=== PATIENT | male | born 1935 | race Caucasian/White ===

== ENCOUNTER → 2017-04-29 08:55 | Outpatient (CLI) | payer MEDICARE, BC | END | disposition home or self-care (01) | LOC: D.US 08:55 | DX: I71.4 Abdominal aortic aneurysm, without rupture (principal); I65.23 Occlusion and stenosis of bilateral carotid arteries ==

== ENCOUNTER → 2018-01-07 13:32 | Outpatient (CLI) | payer MEDICARE, BC | END | disposition home or self-care (01) | LOC: D.CT 13:32 | DX: I65.23 Occlusion and stenosis of bilateral carotid arteries (principal) ==

== ENCOUNTER → 2018-01-23 07:11 | Outpatient (CLI) | payer MEDICARE, BC | END | disposition home or self-care (01) | LOC: D.RT 07:11 | DX: R06.02 Shortness of breath (principal) ==

== ENCOUNTER 2018-03-04 11:37 | Inpatient (IN) | payer MEDICARE, BC ==
[~2018-03-04] VITALS: Ht 179.1 cm; Wt 102.3 kg
[2018-03-04] VITALS (7 sets, daily range): BP systolic 91–150; BP diastolic 66–93; Ht 179.1 cm; Wt 102.3 kg
--- NOTE | ~2018-03-04 | MORECARE ---
CASE MANAGEMENT DISCHARGE SUMMARY PATIENT: SHEILA GROSSMAN UNIT: [id number] ADM DATE: 03/04/18 AGE: 83 : 35 SEX: M ROOM/BED: D.3121 AUTHOR: JILL,DOC PHYSICIAN: REFERRING PHYSICIAN: ELYSSA BROOKS MD DATE OF SERVICE: 03/06/18 Discharge Plan Patient Name: SHEILA GROSSMAN Facility: [facility]:[place] : 1935 Planned Disposition: Home Anticipated Discharge Date: 03/05/18 Discharge Date: 03/05/2018 Expected LOS: 1 Initial Reviewer: [email or web address] Initial Review Date: 03/04/2018 Generated: 03/06/18 10:45 am DCP- Discharge Planning Updated by [email or web address]: Lakshmi Lange on 03/04/18 11:[address] Patient Name: SHEILA GROSSMAN Admission Status: ER Accout number: [id number] Admission Date: 03-04-2018 : 1935 Admission Diagnosis: Attending: ELYSSA BROOKS Current LOS: 1 Anticipated DC Date: 03-06-2018 Planned Disposition: Home Primary Insurance: MEDICARE A & B Discharge Planning Comments: CM met with patient and his daughter to complete initial dc planning assessment. CM educated patient on the CM role and verbal consent given by patient to complete assessment. Patient lives at home alone and reports he is independent in his care and denied use of community resources. His daughter has been staying with him the past few days due to having eye surgery. At discharge patient plans to return home alone and feels this is a safe discharge. Patient denied known discharge needs at this time. CM will continue to follow and will assist as needed with dc plans/needs. See below for more assessment information. City Letter Carrier: Lakshmi Lange RN, [facility] DCPIA - Discharge Planning Initial Assessment Updated by [id number]: Lakshmi Lange on 03/04/18 12:55 pm * Is the patient Alert and Oriented? Yes * How many steps to enter\exit or inside your home? None * PCP Dr. Andrea * Pharmacy [facility] [address] * Preadmission Environment Home Alone * ADLs Independent * Equipment CPAP Glucometer * Other Equipment Checks his sugar every morning. Last A1C was 5.3 * List name and contact numbers for known caregivers / representatives who currently or will assist patient after discharge: Darlene Wan - daughter - [phone] * Verbal permission to speak to the caregivers and representatives has been obtained from the patient. Yes * Community resources currently utilized None * Additional services required to return to the preadmission environment? No * Can the patient safely return to the preadmission environment? Yes * Has this patient been hospitalized within the prior 30 days at any hospital? No Last DP export: 03/04/18 12:01 Patient Name: SHEILA GROSSMAN Page 36741 at 0945 All edits/amendments must be made on the electronic document DICTATION DATE: 03/06/18944 TAP AND DIE MAKER TECHNICIAN: NUNU 03/06/18944 RPT#: [id number] DC DATE:03/05/18 STATUS: DIS IN [facility] [address] [place] [address] END OF REPORT
--- NOTE | ~2018-03-04 | HEMODYNAMI ---
PATIENT:SHEILA GROSSMAN MEDICAL RECORD: [id number] : [birth year] LOCATION:[address] ADMISSION DATE: 03/04/18 Generatedon:03/05/20189:06 Patient name: SHEILA GROSSMAN Patient #: [id number] SSN: : Date of study: 03/05/2018 Page: Of Hemodynamic Procedure Report Patient Data Patient Demographics Procedure consent was obtained First Name: SHEILA Gender: Male Last Name: CHAUNCEY : 1935 [facility] Initial: HIPOLITO Age: 83 year(s) Patient #: [id number] Race: Unknown Additional ID: [id number] Contact details Address: [address] [place] [address] State: [place] City: [place] Zip code: [address] Past Medical History Allergies: No known allergies Admission Admission Data Admission Date: 03/04/2018 Admission Time: 12:34 Room #: D.2115 Lab Results Lab Result Date: 03/05/2018 Lab Result Time: 0:00 Biochemistry Name Units Result Min Max BUN mg/dl 37 --(----)-* 7 18 Creatinine mg/dl 1.4 --(----)*- 0.6 1.3 CBC Name Units Result Min Max Hemoglobin g/dl 13.9 --(*---)-- 13.5 17.5 Procedure Procedure Types Cath Procedure Diagnostic Procedure LHC LH w/Coronaries FFR/IVUS Intra-Coronary IVUS Initial Sedation Charges Moderate Sedation up to 15 minutes PCI Procedure Coronary Stent Coronary Stent Initial x2 Procedure Description Procedure Date Procedure Date: 03/05/2018 Procedure Start Time: 8:39 Procedure End Time: 9:05 Procedure Staff Name Function Karthik Young MD Performing Physician Viki Naidu RT Scrub Digna Conner RN Nurse Evert Mckay RT Monitor Preston Arnett RN Supervisor Graphite Procedure Data Cath Procedure Fluoroscopy Diagnostic fluoroscopy Total fluoroscopy Time: 7.3 time: 7.3 min min Diagnostic fluoroscopy Total fluoroscopy dose: dose: 1217 mGy 1217 mGy Contrast Material Contrast Material Type Amount (ml) Isovue 300 138 Entry Location Entry Primary Successful Side Size Upsize Upsize Entry Closure Craig ccessful Closure Location (Fr) 1 (Fr) 2 (Fr) Remarks Device Remarks Radial Right 6 Fr Mechanical artery Short Compression Estimated blood loss: 10 ml Diagnostic catheters Device Type Used For End Catheter Placement DIAGNOSTIC [place]ff 110cm 5 Procedure Fr catheter ([id number]) Procedure Complications No complications Procedure Medications Medication Administration Route Dosage 0.9% NaCl I.V. 100 ml/hr Oxygen etCO2 Nasal cannula 2 l/min Lidocaine 2% added to field 20 Heparin Flush Bag added to field 2 bags (1000units/500ml NS) Radial Cocktail added to field 1 syringe (Verapomil 2mg/Nitro 400mcg/Heparin 1500units) Versed I.V. 2 mg Fentanyl I.V. 50 mcg Heparin Bolus I.V. 4000 units Versed I.V. 1 mg Fentanyl I.V. 25 mcg Hemodynamics Rest Heart Rate: 79 (bpm) Snapshots Pre Cath Intra NCS Post Cath Vital Signs Time Heart Resp SPO2 etCO2 NIBP (mmHg) Rhythm Pain Sedation Rate (ipm) (%) (mmHg) Status Level (bpm) 8:29:00 93 16 97 34 129/91(107) A-Fib 0 (11) 10(A) , No pain 8:33:00 78 17 98 33.6 129/94(111) A-Fib 0 (11) 10(A) , No pain 8:37:06 79 18 97 27.6 109/82(102) A-Fib 0 (11) 9(A) , No pain 8:41:14 95 18 96 22.4 116/74(92) A-Fib 0 (11) 9(A) , No pain 8:45:21 88 18 97 20 82/58(69) A-Fib 0 (11) 10(A) , No pain 8:49:21 84 16 98 20 92/70(75) A-Fib 0 (11) 9(A) , No pain 8:53:23 93 18 97 25 100/69(85) A-Fib 0 (11) 9(A) , No pain 8:57:27 98 16 98 26 100/75(88) A-Fib 0 (11) 10(A) , No pain 9:01:36 63 9 92 0 100/61(82) A-Fib 0 (11) 10(A) , No pain 9:05:36 0 No Cuff A-Fib 0 (11) 10(A) , No pain Medications Time Medication Route Dose Verified Delivered Reason Note s Effectiveness by by 8:27:21 0.9% NaCl I.V. 100 Karthik Digna used for ml/hr Hector Conner 21 dealer 8:27:27 Oxygen etCO2 2 l/min Karthik Digna used for Nasal Hector Conner procedure cannula RN 8:27:32 Lidocaine 2% added 20ml Karthik Karthik for local to vial Hector Young MD anesthetic field 8:27:37 Heparin Flush added 2 bags Karthik Karthik used for Bag to Hector Young MD procedure (1000units/500ml field NS) 8:27:42 Radial Cocktail added 1 Karthik Karthik used for (Verapomil to syringe Hector Young MD procedure 2mg/Nitro field 400mcg/Heparin 1500units) 8:36:44 Versed I.V. 2 mg Karthik Digna for sedation Hector Conner RN 8:36:55 Fentanyl I.V. 50 mcg Karthik Digna for sedation Hector Conner RN 8:44:59 Heparin Bolus I.V. 4000 Karthik Digna for veri fied units Hector Conner anticoagulation with Dr. ANTHONY Young 8:45:13 Versed I.V. 1 mg Karthik Digna for sedation Hector Conner RN 8:45:17 Fentanyl I.V. 25 mcg Karthik Digna for sedation Hector Conner RN Procedure Log Time Note 8:06:25 Signed procedure consent form obtained from patient. 8:06:28 Preston Arnett RN sent for patient. Start room use. 8:06:28 Time tracking: Regular hours (M-F 7:00 - 5:00) 8:06:31 Plan of Care:Hemodynamics will remain stable., Cardiac rhythm will remain stable., Comfort level will be maintained., Respiratory function will remain adequate., Patient/ family verbilizes understanding of procedure., Procedure tolerated without complication., Recovers from procedure without complications.. 8:06:35 Diagnostic Cath status Elective 8:17:15 H&P Date Dictated: 03/04/2018 Within 30 days and on chart., H&P Addendum completed by physician on day of procedure. (MUST COMPLETE FOR ALL OUTPATIENTS). 8::59 Lab Result : Creatinine 1.4 mg/dl 8::59 Lab Result : BUN 37 mg/dl 8::59 Lab Result : Hemoglobin 13.9 g/dl 8:21:34 Patient received from Med II to CCL 1 Alert and oriented. Tansferred to table in Supine position. 8:21:35 Warm blankets applied, and caro hugger turned on for patient comfort. 8:21:35 Correct patient and procedure confirmed by team. 8:21:36 ECG and BP/O2 sat monitors applied to patient. 8:27:21 0.9% NaCl 100 ml/hr I.V. was administered by Digna Conner RN; used for procedure; 8:27:27 Oxygen 2 l/min etCO2 Nasal cannula was administered by Digna Conner RN; used for procedure; 8:27:32 Lidocaine 2% 20ml vial added to field was administered by Karthik Young MD; for local anesthetic; 8:27:37 Heparin Flush Bag (1000units/500ml NS) 2 bags added to field was administered by Karthik Young MD; used for procedure; 8:27:42 Radial Cocktail (Verapomil 2mg/Nitro 400mcg/Heparin 1500units) 1 syringe added to field was administered by Krathik Young MD; used for procedure; 8:28:08 Vital chart was started 8:34:09 Baseline sample Acquired. 8:34:13 Rhythm: atrial fibrillation 8:34:15 Pre-procedure instructions explained to patient. 8:34:16 Pre-op teaching completed and patient verbalized understanding. 8:34:18 Family unavailable. 8:34:20 Patient NPO since Midnight. 8:34:24 Patient allergic to No known allergies 8:34:26 Is patient on blood thinner?Yes 8:34:28 ACC The patient was administered the following blood thiners within the last 24 hours: ACCPlavix 8:34:30 Patient diabetic? Yes. 8:34:30 If diabetic: On Metformin? Yes 8:34:36 If on Metformin: Last Dose? 03/04/2018 8:34:41 Previous problem with sedation/anesthesia? No ? 8:34:41 Snore? Yes 8:34:42 Sleep apnea? Yes 8:34:43 Deviated septum? No 8:34:43 Opens mouth fully? Yes 8:34:44 Sticks out tongue? Yes 8:34:47 Airway obstruction? Yes COPD 8:34:53 Dentures? Yes TOP IN TIGHT 8:34:56 Modified Chas's test Ulnar < 7 seconds 8:34:57 Patient pain scale 0/10 ?. 8:35:03 IV patent on arrival in left forearm with 0.9% NaCl at [facility]. 8:35:05 Lab results completed and on chart. 8:35:08 Right Radial & Right Groin area was prepped with chlora-prep and draped in sterile fashion 8:35:09 Alarms reviewed by R. N. 8:35:09 Sharps counted by scrub and verified by R.N. 8:35:11 Use device set Radial Dx or PCI 8:35:12 ACIST Syringe (88285) opened to sterile field. 8:35:12 Medline Cath Pack ([id number]) opened to sterile field. 8:35:13 Bag Decanter (2002S) opened to sterile field. 8:35:16 ACIST Hand Control (75715) opened to sterile field. 8:35:16 ACIST Manifold (74329) opened to sterile field. 8:35:16 Tegaderm 4 x 4 (1626W) opened to sterile field. 8:35:17 MBrace Wrist Support ([id number]) opened to sterile field. 8:35:18 SHEATH 6FR Slender (02-1060) opened to sterile field. 8:35:19 DIAGNOSTIC WIRE .035 260cm J wire (911362) opened to sterile field. 8:35:24 Physician arrived 8:35:25 --------ALL STOP TIME OUT------ 8:35:28 Final Timeout: patient, procedure, and site verified with staff and physician. All members of the team are in agreement. 8:35:31 Right Radial & Right Groin site verified by team. 8:35:33 Physical assessment completed. ASA score P 2 - A patient with mild systemic disease as per Karthik Young MD. 8:35:35 Sedation plan: IV Moderate Sedation Medication:Versed, Fentanyl 8:36:44 Versed 2 mg I.V. was administered by Digna Conner RN; for sedation; 8:36:51 Zero performed for pressure channel P1 8:36:55 Fentanyl 50 mcg I.V. was administered by Digna Conner RN; for sedation; 8:39:08 Procedure started. 8:39:09 Full Disclosure recording started 8:39:12 Local anesthetic to right radial artery with Lidocaine 2% by Karthik Yonug MD.INITIAL ACCESS ONLY 8:39:18 A 6 Fr Short sheath was inserted into the Right Radial artery 8:40:18 A DIAGNOSTIC [place] 110cm 5 Fr catheter (594233) was advanced over the wire and used for Procedure. 8:41:36 LV gram done using BRAXTON 8:41:38 Injector settings: Ml/sec: 5, Volume: 15, 8:41:55 EF : 40 % 8:42:00 LCA angiography performed. 8:43:27 RCA angiography performed. 8:43:45 CHOICE PT Extra Support 182cm wire ([id number]) opened to sterile field. 8:43:46 INFLATOR Merit BasixCompak (DI2601) opened to sterile field. 8:43:50 [place] IVUS Catheter (37503Z) opened to sterile field. 8:44:59 Heparin Bolus 4000 units I.V. was administered by Digna Conner RN; for anticoagulation; verified with Dr. Young 8:45:13 Versed 1 mg I.V. was administered by Digna Conner RN; for sedation; 8:45:17 Fentanyl 25 mcg I.V. was administered by Digna Conner RN; for sedation; 8:45:31 GUIDE 6FR XBLAD 3.5 catheter ([id number]) opened to sterile field. 8:45:40 6 Fr XBLAD 3.5 guide catheter was inserted over the wire 8:46:03 CHOICE PT ES wire advanced. 8:46:09 Wire advanced across lesion. 8:47:00 CHOICE PT Extra Support 182cm wire ([id number]) opened to sterile field. 8:47:10 Wire removed. damaged. 8:47:26 CHOICE PT ES wire advanced. 8:48:37 IVUS catheter advanced over wire. 8:48:39 IVUS pass to Circ lesion performed. 8:48:40 IVUS catheter removed over wire. 8:52:02 Place stent Inflation Number: 1 A INTEGRITY RX 2.5 x 14 stent ([id number]) was prepped and advanced across the 1st Ob Rosa. The stent was deployed at 11 SUSANNAH for 0:10 (min:sec). 8:52:05 Stent catheter was removed intact over wire. 8:52:06 Wire removed. 8:52:07 Guide catheter removed. 8:52:12 GUIDE 6FR AR 2.0 SH catheter ([id number]) opened to sterile field. 8:52:20 6 Fr AR 2 SH guide catheter was inserted over the wire 8:53:38 CHOICE PT ES wire advanced. 8:53:41 Wire advanced across lesion. 8:55:11 Inflate balloon Inflation number: 1 A INTEGRITY RX 3.5 x 15 stent ([id number]) was prepped and advanced across the Prox RCA, then inflated to 13 SUSANNAH for 0:10 (min:sec). 8:55:22 Stent catheter was removed intact over wire. 8:55:23 Wire removed. 8:55:23 Guide catheter removed. 8:55:29 TR BAND Standard ([id number]) opened to sterile field. 8:56:04 Sheath removed intact; hemostasis achieved with Mechanical Compression to the Right Radial artery. 8:56:05 Procedure ended.(Physican Out) 8:59:30 Fluoroscopy time 07.30 minutes. 8:59:34 Flurop Dose total: 1217 8:59:34 Fluoroscopy dose: 1217 mGy 8:59:38 Contrast amount:Isovue 300 138ml. 8:59:39 Sharps counted by scrub and verified by R.N. 8:59:41 TR band inflated with 10cc of air. 8:59:42 Insertion/operative site no bleeding no hematoma. 8:59:52 Post right radial artery:stable, soft, clean and dry 8:59:56 Post-procedure physical assessment completed. ASA score P 2 - A patient with mild systemic disease as per Karthik Young MD. 9:01:15 Post procedure rhythm: sinus rhythm 9:01:18 Estimated blood loss: 10 ml 9:01:24 Post procedure instruction explained to patient.Patient verbalizes understanding. 9:01:25 Patient needs reinforcement of post procedure teaching. 9:02:16 Procedure type changed to Cath procedure, Diagnostic procedure, LHC, LHC w/Coronaries, FFR/IVUS, Intra-Coronary IVUS Initial, Sedation Charges, Moderate Sedation up to 15 minutes, PCI procedure, Coronary Stent, Coronary Stent Initial x2 9:05:17 Procedure and supply charges have been captured, reviewed, submitted and are correct. 9:05:19 Procedure Complication : No complications 9:05:21 Vital chart was stopped 9:05:21 See physician's report for complete and final results. 9:05:22 Report given to PCU. 9:05:24 Patient transfered to PCU with Stretcher. 9:05:26 Procedure ended. 9:05:26 Full Disclosure recording stopped 9:05:30 End room use (Document Last) Intervention Summary Intervention Notes Time ActionType Lesion and Equipment Action# Pressure Duration Attributes Used 8:52:02 Place stent 1st Ob Rosa INTEGRITY RX 1 11 00:10 2.5 x 14 stent ([id number]) 8:55:11 Inflate Prox RCA INTEGRITY RX 1 13 00:10 balloon 3.5 x 15 stent ([id number]) Device Usage Item Name Manufacture Quantity Catalog Number Hospital Part Current Mini mal Lot# / Charge Number Stock Stock Serial# Code ACIST Acist 1 12769 976975 727247 755284 20 Syringe Medical (08454) Systems Inc Medline Cath Medline 1 [id number] 490798 42780 398105 5 Pack ([id number]) Bag Decanter Microtek 1 2001S 244533 03734 927382 5 (2001S) Medical Inc. ACIST Hand Acist 1 83714 263373 549804 475910 5 Control Medical (41165) Systems Inc ACIST Acist 1 71866 230169 682607 430845 5 Manifold Medical (03687) Systems Inc Tegaderm 4 x 3M 1 1626W 619255 374694 056001 5 4 (1626W) MBrace Wrist Advanced 1 140-0250-00 838109 24416 139775 5 Support Vascular (155961602) Dynamics SHEATH 6FR Terumo 1 [id number] 557559 117955 510309 5 Slender (80-1060) DIAGNOSTIC St Piotr 1 790108 826731 021656 192648 30 WIRE .035 260cm J wire (410797) DIAGNOSTIC Terumo 1 40-5070 769724 327216 843905 5 De Graff 110cm 5 Fr catheter (833416) CHOICE PT [place] 2 [id number] 396754 183673 787934 5 Extra Scientific Support 182cm wire (5220801T2) INFLATOR Merit 1 SH9923 544212 452208 913838 15 Merit Medical BasixCompak (DM0789) [place] 1 80785W 398592 112833 397132 8 [place] IVUS Catheter (73093L) GUIDE 6FR Cardinal 1 04593333 937639 481105 956092 10 XBLAD 3.5 Health catheter (69796512) INTEGRITY RX Medtronic 1 [id number] 267917 581937 191250 5 [id number] 2.5 x 14 stent ([id number]) GUIDE 6FR AR Medtronic 1 [id number] 806671 94481 500342 1 2.0 SH catheter ([id number]) INTEGRITY RX Medtronic 1 [id number] 793525 770451 321227 5 [id number] 3.5 x 15 stent ([id number]) TR BAND Terumo 1 [id number] 432780 774281 298041 40 Standard ([id number]) Signature Audit [place] Stage Time Signature Unsigned Intra-Procedure 03/05/2018 Evert Mckay 9:06:05 AM RT(R) Signatures Monitor : Evert Mckay RT Signature : Date : Time : [id number] [place] [address]
--- NOTE | ~2018-03-04 | EC ---
PATIENT:SHEILA GROSSMAN DATE OF SERVICE: 03/04/18 SEX: M MEDICAL RECORD: [id number] DATE OF : [birth year] LOCATION:D.M2 D.211 AGE OF PATIENT: 83 ADMISSION DATE: 03/04/18 REFERRING PHYSICIAN: INTERPRETING PHYSICIAN: JE YOUNG MD ECHOCARDIOGRAM REPORT ECHO CHARGES 4 ECHO COMPLETE Date: 03/04/18 CLINICAL DIAGNOSIS: CHEST PAIN, ATRIAL FIB ECHOCARDIOGRAPHIC MEASUREMENTS (adult normal given) AC root (d.<3.7cm) 2.5 cm LV Septum d (<1.2 cm> 1.3 cm Valve Excursion 1.3 cm LV Septum (systole) 1.5 cm Left Atria (s.<4.0cm> 3.7 cm LVPW d(<1.2cm) 1.5 cm RV (d.<2.3cm) 3.7 cm LVPW (sytole) 1.8 cm LV diastole(<5.6CM) 5.2 cm MV E-F(>70mm/sec) cm LV systole 3.9 cm LVOT Diameter 1.6 cm MV exc.(>10mm) 0.9 cm Est.ejection fraction (50-75%) % DOPPLER: LVIT cm/sec A 34.0 cm/sec E 101 cm/sec LA cm/sec RVSP 27 mmHg LVOT 71 cm/sec AOP1/2T m/s Asc. Ao 122 cm/sec RVOT 72 cm/sec RA cm/sec PA 87 cm/sec AV Gradient Peak 5.95 mmHg AV Mean 3.18 mmHg AV Area 1.7 cm MV Gradient Peak 4.36 mmHg MV Mean 1.57 mmHg MV Area cm COMMENTS: Reading Aide: Rosa MCDONNELL Aircraft Powertrain Repairer: 1 Dr. Young TAPE# PACS Pericardial Effusion N DATE OF SERVICE: 03/04/2018 PROCEDURE: Echocardiogram. FINDINGS: 1. Left ventricular chamber size is within normal limits. Left ventricular systolic function is normal. Overall ejection fraction estimated at 55%. 2. Left atrium is within normal limits at 3.7 cm. Right atrium and right ventricle chamber sizes are mildly dilated. 3. Valvular structures have normal structure and motion. ECHOCARDIOGRAM REPORT [id number] SHEILA GROSSMAN 4. Doppler interrogation reveals mild mitral regurgitation, no other valvular insufficiency or stenosis. Pulmonary systolic pressure is estimated at 27 mmHg. 5. No evidence of pericardial effusion or left ventricular thrombus. TRANSINT:[id number] Voice Confirmation ID: [id number] DOCUMENT ID: [id number] JE YOUNG MD CC: [id number] DICTATION DATE: 03/05/18831 CENTER MEDICAL DIRECTOR: 03/05/18 1131 ADM IN [facility] [address] [id number]
--- NOTE | ~2018-03-04 | OP ---
PATIENT NAME: SHEILA GROSSMAN MEDICAL RECORD: [id number] :35 LOCATION:D.M2 D.2115 ADMISSION DATE:03/04/18 SURGEON: JE DIAZ MD DATE OF OPERATION: 03/05/2018 PROCEDURES: 1. PTCA stent RCA. 2. PTCA stent left circumflex. 3. Intravascular ultrasound. 4. Left heart catheterization. 5. Selective coronary angiography. 6. Left ventriculogram. INDICATION: Chest pain compatible with angina and coronary artery disease. PROCEDURE IN DETAIL: After informed consent was obtained and after a detailed description of risks, benefits, as well as alternative therapies, the patient elected to proceed with angiogram and angioplasty. The right radial area was prepped and draped in normal sterile fashion. Right radial artery was cannulated via modified Seldinger technique with placement of 6-[place]izen [place] sheath. All catheters exchanged through this sheath. FINDINGS: Left ventriculogram was performed in standard 30-degree BRAXTON view, reveals mild global hypokinesis, ejection fraction estimated at 40%. SELECTIVE CORONARY ANGIOGRAPHY: 1. Left main is with no significant angiographic disease. 2. Left anterior descending has moderate irregularities, but no flow-limiting stenosis. 3. The left circumflex has greater than 90% stenosis confirmed by intravascular ultrasound in the mid vessel. 4. Right coronary artery has 90% stenosis proximally. PTCA STENT OF THE LEFT CIRCUMFLEX: The stent used was a 2.5 x 14 mm Integrity. Result was 0% residual stenosis. PTCA STENT OF THE RCA: The stent used was a 3.5 x 15 mm Integrity. Result was 0% residual stenosis and the patient spontaneously converted from atrial fibrillation to sinus rhythm after PTCA stent of the RCA. OVERALL IMPRESSION: Successful PTCA stent of the RCA and circumflex, both going from 90% initial stenosis to 0% residual. TRANSINT:[id number] Voice Confirmation ID: [id number] DOCUMENT ID: [id number] JE DIAZ MD CC: [id number] DICTATION DATE: 03/05/18901 BUILDING MAINTENANCE TECHNICIAN: 03/05/18 1136 [place] [address]
--- NOTE | ~2018-03-04 | CN ---
PATIENT NAME:SHEILA GROSSMAN MEDICAL RECORD: [id number] : 35 LOCATION:[facility].E16- ADMIT DATE: 03/04/18 ACCOUNT: [id number] CONSULTING PHYSICIAN: JE DIAZ MD REFERRING PHYSICIAN: ELYSSA BROOKS MD DATE OF CONSULTATION: 03/04/2018 CARDIOLOGY CONSULT DIAGNOSES: 1. Atrial fibrillation, new onset, unknown duration. 2. Shortness of breath. 3. Chest pain, compatible with angina. 4. Abnormal ECG. 5. Smoking history. 6. COPD. 7. Carotid vascular disease. HISTORY: This is a gentleman who went for a wellness check at his physician's office, was found to be in atrial fibrillation. He has felt short of breath and some intermittent chest pressure for the past 2 months. He did not know that he is in atrial fibrillation. He has not felt any palpitations. He is currently in atrial fibrillation with heart rate in the 130s. His EKG shows ST depression and T wave inversion in the lateral leads. His has an EKG from [facility] where he underwent a retinal surgery approximately 2 weeks ago and the EKG then was atrial fibrillation but did not have the ST-T changes. PHYSICAL EXAMINATION: GENERAL APPEARANCE: Well-nourished, well-developed, appears stated age. Level of distress, comfortable. PSYCHIATRIC: Mental status, alert, normal affect. Orientation, oriented to time, place and person. EYES: Lids and conjunctiva, noninjected. No discharge, no pallor. ENT: Lips, teeth, gums, normal dentition. Oropharynx, no cyanosis, no pallor. NECK: Carotid arteries, bilateral normal upstroke, no bruits, no thrills. JUGULAR VEINS: No jugular venous pressure or distention. CERVICAL LYMPH NODES: Nontender, nonenlarged. THYROID: Not enlarged. Nontender. No nodules. LUNGS: Respiratory effort, unlabored. CHEST: Normal curvature. No thoracic deformity. No chest wall tenderness. Percussion, resonant. Auscultation, clear. No wheezes, no rales, no rhonchi. CARDIOVASCULAR: Irregularly irregular with atrial fibrillation. EXTREMITIES: No cyanosis, no edema. Peripheral pulses, full and equal in all extremities, except as noted. No bruits appreciated. ABDOMEN: Soft, nondistended. Normal aorta. No bruit. Nontender. No masses. Liver, nontender, no hepatomegaly. Spleen, nontender, no splenomegaly. MUSCULOSKELETAL: No joint tenderness. No joint swelling. No erythema. NEUROLOGICAL: Normal gait, normal strength, normal tone. SKIN: Warm and dry. OVERALL IMPRESSION: Atrial fibrillation, most likely this is ischemic based. We will put him on sotalol as well as IV Cardizem at this time for rate control. Plan for cardiac catheterization in the a.m. Further care depends upon findings of the catheterization. CONSULT REPORT [id number] SHEILA GROSSMAN TRANSINT:[id number] Voice Confirmation ID: [id number] DOCUMENT ID: [id number] JE DIAZ MD CC: [id number] DICTATION DATE: 03/04/18 1205 TRUCK LEASING MANAGER: 03/04/18 1352 ADM IN [id number] [place] [address]
--- NOTE | ~2018-03-04 | MORECARE ---
CASE MANAGEMENT DISCHARGE SUMMARY PATIENT: SHEILA GROSSMAN UNIT: [id number] ADM DATE: 03/04/18 AGE: 83 : 35 SEX: M ROOM/BED: D.E16 AUTHOR: JILLDOC PHYSICIAN: REFERRING PHYSICIAN: ELYSSA BROOKS MD DATE OF SERVICE: 03/04/18 Discharge Plan Patient Name: SHEILA GROSSMAN Facility: [facility]:[place] : 1935 Planned Disposition: Home Anticipated Discharge Date: 03/06/18 Discharge Date: Expected LOS: 2 Initial Reviewer: [email or web address] Initial Review Date: 03/04/2018 Generated: 03/04/18 2:01 pm DCP- Discharge Planning Updated by [email or web address]: Lakshmi Lange on 03/04/18 11:[address] Patient Name: SHEILA GROSSMAN Admission Status: ER Accout number: [id number] Admission Date: 03-04-2018 : 1935 Admission Diagnosis: Attending: ELYSSA BROOKS Current LOS: 1 Anticipated DC Date: 03-06-2018 Planned Disposition: Home Primary Insurance: MEDICARE A & B Discharge Planning Comments: CM met with patient and his daughter to complete initial dc planning assessment. CM educated patient on the CM role and verbal consent given by patient to complete assessment. Patient lives at home alone and reports he is independent in his care and denied use of community resources. His daughter has been staying with him the past few days due to having eye surgery. At discharge patient plans to return home alone and feels this is a safe discharge. Patient denied known discharge needs at this time. CM will continue to follow and will assist as needed with dc plans/needs. See below for more assessment information. Craps Manager: Lakshmi Lange RN, [facility] DCPIA - Discharge Planning Initial Assessment Updated by [email or web address]: Lakshmi Lange on 03/04/18 12:55 pm * Is the patient Alert and Oriented? Yes * How many steps to enter\exit or inside your home? None * PCP Dr. Andrea * Pharmacy [facility] [address] * Preadmission Environment Home Alone * ADLs Independent * Equipment CPAP Glucometer * Other Equipment Checks his sugar every morning. Last A1C was 5.3 * List name and contact numbers for known caregivers / representatives who currently or will assist patient after discharge: Darlene Wan - daughter - [phone] * Verbal permission to speak to the caregivers and representatives has been obtained from the patient. Yes * Community resources currently utilized None * Additional services required to return to the preadmission environment? No * Can the patient safely return to the preadmission environment? Yes * Has this patient been hospitalized within the prior 30 days at any hospital? No Patient Name: SHEILA GROSSMAN Page [phone] at 1301 All edits/amendments must be made on the electronic document DICTATION DATE: 03/04/18 1301 BOILERMAKER MECHANIC: NUNU 03/04/18 1301 RPT#: [id number] DC DATE: STATUS: ADM IN [facility] [address] [place] [address] END OF REPORT
[2018-03-04 12:28] LABS: BASOPHILS 0.2 % (0-2); EOSINOPHILS 3.3 % (0-7); HEMATOCRIT 40.8 % (42.0-54.0); HEMOGLOBIN 13.9 g/dL (13.5-17.5); IMMATURE GRANULOCYTES 0.2 % (0-5); LYMPHOCYTES 23.3 % (15-50); MCH 30.8 pg (26.0-34.0); MCHC 34.1 g/dL (31.0-37.0); MCV 90.5 fL (80.0-100.0); MEAN PLATELET VOLUME 10.6 fL (7.4-10.4); MONOCYTES 7.6 % (2-11); NEUTROPHILS 65.4 % (40-80); PLATELET COUNT 135 10x3/uL (130-400); RBC 4.51 10x6/uL (4.20-6.10); RDW 14.4 % (11.5-14.5); WBC 4.9 10x3/uL (4.8-10.8)
[2018-03-04 12:58] LABS: CKMB 1.4 U/L (0.0-3.6); CREATINE KINASE 78 UL (21-232)
[2018-03-04 12:59] LABS: TROPONIN-I < 0.017 ng/mL (0.000-0.060)
[2018-03-04 13:01] LABS: ANION GAP 15.5 mmol/L (8-16); CALCIUM 8.8 mg/dL (8.5-10.1); CARBON DIOXIDE 25.6 mmol/L (21.0-32.0); CREATININE - SERUM 1.4 mg/dL (0.6-1.3); POTASSIUM - SERUM 4.1 mmol/L (3.5-5.1)
[2018-03-04 19:57] LABS: CKMB 0.8 U/L (0.0-3.6); CREATINE KINASE 73 UL (21-232)
[2018-03-04 19:58] LABS: TROPONIN-I < 0.017 ng/mL (0.000-0.060)
[2018-03-05 01:27] LABS: CKMB 0.7 U/L (0.0-3.6); CREATINE KINASE 60 UL (21-232); TROPONIN-I < 0.017 ng/mL (0.000-0.060)
[2018-03-05 04:00] VITALS: BP 123/80
[2018-03-05 06:00] LABS: BASOPHILS 0.2 % (0-2); EOSINOPHILS 4.3 % (0-7); HEMATOCRIT 39.1 % (42.0-54.0); HEMOGLOBIN 12.9 g/dL (13.5-17.5); IMMATURE GRANULOCYTES 0.2 % (0-5); LYMPHOCYTES 23.9 % (15-50); MCH 30.3 pg (26.0-34.0); MCV 91.8 fL (80.0-100.0); MEAN PLATELET VOLUME 10.4 fL (7.4-10.4); MONOCYTES 12.4 % (2-11); PLATELET COUNT 130 10x3/uL (130-400); RBC 4.26 10x6/uL (4.20-6.10); RDW 14.6 % (11.5-14.5); WBC 4.4 10x3/uL (4.8-10.8)
[2018-03-05 06:28] LABS: ALBUMIN 3.4 g/dL (3.4-5.0); ANION GAP 13.1 mmol/L (8-16); BILIRUBIN - TOTAL 0.4 mg/dL (0.2-1.3); CALCIUM 8.6 mg/dL (8.5-10.1); CARBON DIOXIDE 27.5 mmol/L (21.0-32.0); CREATININE - SERUM 1.2 mg/dL (0.6-1.3); POTASSIUM - SERUM 3.6 mmol/L (3.5-5.1); PROTEIN - SERUM 6.4 g/dL (6.4-8.2)
[2018-03-05] MEDS ORDERED: ZOCOR40 MG PO (07:23)
[2018-03-05] MEDS ORDERED: PRINZIDE 20/12.1 TA1 PO (07:24)
[2018-03-05] MEDS ORDERED: ZOVIRAX400 MG PO (07:25)
[2018-03-05] MEDS ORDERED: BAYER CHEWABLE81 MG PO (07:26)
[2018-03-05] MEDS ORDERED: GLUCOPHAGE500 MG PO (07:26)
[2018-03-05] MEDS ORDERED: PLAVIX75 MG PO (07:30)
[2018-03-05] MEDS ORDERED: FUROSEMIDE20 MG PO (07:32)
[2018-03-05 08:25] VITALS: BP 114/67
[2018-03-05] MEDS ORDERED: BETAPACE 80 MG80 MG PO (09:30)
[2018-03-05 12:15] VITALS: BP 109/61
== END 2018-03-05 14:06 | disposition home or self-care (01) | DRG 248 ==
LOC: D.ER 11:37 → D.EDHOLD 12:34 → D.M2 12:34
PROVIDERS: Family Medicine; Internal Medicine Interventional Cardiology
PROC: B2111ZZ Fluoroscopy of Multiple Coronary Arteries using Low Osmolar Contrast (ICD-10-PCS; 2018-03-05)
PROC: B2151ZZ Fluoroscopy of Left Heart using Low Osmolar Contrast (ICD-10-PCS; 2018-03-05)
PROC: 02713EZ Dilation of Coronary Artery, Two Arteries with Two Intraluminal Devices, Percutaneous Approach (ICD-10-PCS; principal; 2018-03-05 08:00)
PROC: 4A023N7 Measurement of Cardiac Sampling and Pressure, Left Heart, Percutaneous Approach (ICD-10-PCS; 2018-03-05 08:00)
DX: I25.119 Atherosclerotic heart disease of native coronary artery with unspecified angina pectoris (principal); R57.0 Cardiogenic shock; N17.9 Acute kidney failure, unspecified; I48.91 Unspecified atrial fibrillation; R94.31 Abnormal electrocardiogram [ECG] [EKG]; J44.9 Chronic obstructive pulmonary disease, unspecified; I11.0 Hypertensive heart disease with heart failure; I50.9 Heart failure, unspecified

== ENCOUNTER 2018-04-11 05:14 | Inpatient (IN) | payer MEDICARE, BC ==
[2018-04-09 10:18] LABS: APPEARANCE CLEAR (CLEAR); BILIRUBIN NEGATIVE (NEGATIVE); COLOR YELLOW (YELLOW); GLUCOSE NEGATIVE (NEGATIVE); KETONE NEGATIVE (NEGATIVE); NITRITE NEGATIVE (NEGATIVE); PH 6.5 (5.0-6.0); PROTEIN NEGATIVE (NEGATIVE); SPECIFIC GRAVITY 1.005 (1.005-1.020); UROBILINOGEN NORMAL (NORMAL)
[2018-04-09 10:30] LABS: HEMATOCRIT 38.4 % (42.0-54.0); HEMOGLOBIN 12.7 g/dL (13.5-17.5); MCHC 33.1 g/dL (31.0-37.0); MCV 93.7 fL (80.0-100.0); MEAN PLATELET VOLUME 10.5 fL (7.4-10.4); RBC 4.1 10x6/uL (4.20-6.10); RDW 14.6 % (11.5-14.5); WBC 3.8 10x3/uL (4.8-10.8)
[2018-04-09 10:41] LABS: INR 1.11 (0.85-1.17); PROTIME 13.8 SECONDS (11.6-15.0)
[2018-04-09 10:46] LABS: ALBUMIN 3.9 g/dL (3.4-5.0); ANION GAP 13.2 mmol/L (8-16); BILIRUBIN - TOTAL 0.49 mg/dL (0.2-1.3); CALCIUM 8.7 mg/dL (8.5-10.1); CARBON DIOXIDE 29.6 mmol/L (21.0-32.0); CREATININE - SERUM 1.2 mg/dL (0.6-1.3); POTASSIUM - SERUM 3.8 mmol/L (3.5-5.1); PROTEIN - SERUM 6.7 g/dL (6.4-8.2)
[~2018-04-11] VITALS: Ht 179.1 cm; Wt 103.4 kg
[2018-04-11] VITALS (20 sets, daily range): BP systolic 95–149; BP diastolic 54–98; Ht 179.1 cm; Wt 103.4 kg
[~2018-04-11 05:14] MED LIST: BAYER CHEWABLE81 MG PO; BETAPACE 80 MG80 MG PO; COSOP EACH EYE; FUROSEMIDE20 MG PO; GLUCOPHAGE500 MG PO; HYTRIN5 MG PO; PLAVIX75 MG PO; PRINZIDE 20/12.1 TA1 PO; REVATIO20 MG PO; ZOCOR40 MG PO; ZOVIRAX400 MG PO; [UNRECOGNIZED DRUG - OTHER] EACH EYE
--- NOTE | 2018-04-11 15:38 | NUR ---
1200-SEE FLOW SHEET-RECIEVED SEVERE AGGRESSIVE CONFUSION-KICKING AT OR TEAM-REQUIRED RESTRAINTS DURING TRANSPORT-SAME REMOVED -ATTEMPTED TO CALM PT-PT MADE IT KNOWN THAT HE WANTED A WINTER MINT CANDY NOW-ANESTHESIOLOGIST WENT TO [employer] TO OBTAIN ONE-FAMILY MEMBER FOUND AND TOLD CURRENT SITUATION-APPEARED TO UNDERSTAND ISSUE AND HAD PT SUPPLY OF CANDY WINTERMINTS-STATED WILL CALM HIM DOWN-BROUGHT MEMBER TO BEDSIDE-PT TOOK MINT AND CALMED SIGNIFICANTLY-ABLE TO DO CHEST XRAY FILM WITH PT COOPERATION-RETURNED FRIEND TO BEDSIDE-PT APPEARS CALMER 1300-PLACED ON HOME CPAP REQUESTED BY PT -4L O2 BLED IN BY RT
--- NOTE | 2018-04-11 16:06 | NUR ---
DR BLACKWELL AT BEDSIDE-ORDER TO D/C CATH GIVEN AND DONE-TP CALM AND LUCID AT THIS TIME-R RADIAL ROBERTO LEAKING AT SITE-PT USED THAT ARM TO HIT BEDRAILS FREQUENTLY-DRG CHANGED-APPEARS IN SITU WITH GOOD WAVE FORM
[2018-04-11] MEDS ORDERED: VENTOLIN HFA18 GM INH (16:28)
--- NOTE | 2018-04-11 16:45 | CN ---
PATIENT NAME:SHEILA DENNEY MEDICAL RECORD: [id number] : 35 LOCATION:[facility] ADMIT DATE: 04/11/18 ACCOUNT: [id number] CONSULTING PHYSICIAN: TIFFANY DAIZ DO REFERRING PHYSICIAN: VIRGINIA BLACKWELL MD DATE OF CONSULTATION: 04/11/2018 FAMILY PRACTICE CONSULTATION HISTORY OF PRESENT ILLNESS: Mr. Denney is an 83-year-old white male, who underwent left carotid endarterectomy earlier this morning. Dr. Wilkins is his primary care. We have been consulted for medical management. Left CEA was previously scheduled, but had to be postponed due to retinal detachments and hospitalization for atrial fib with rapid ventricular response. He comes in earlier today and has gone to the OR, and is now back in the CV ICU. He is stable at the moment. He is in atrial fib with rate in 110-120, but hemodynamically his pressures we are handling it right now. He is alert right now. His is at the bedside. He is not too happy because of a Santiago catheter, but he appears to be in no distress. PAST MEDICAL HISTORY: Significant for diabetes, hypertension, congestive heart failure, atrial fibrillation. ALLERGIES: None known. CURRENT MEDICATIONS: Home list of medications include acyclovir 400 b.i.d., clopidogrel 75 mg a day, sotalol 80 mg b.i.d., terazosin 5 mg at bedtime, sildenafil t.i.d., lisinopril/hydrochlorothiazide daily, simvastatin 40 mg a day, baby aspirin a day, furosemide 20 mg a day, metformin 500 mg t.i.d., and Xalatan eye drops. FAMILY HISTORY: Noncontributory. SOCIAL HISTORY: The patient is . He is pretty hard of hearing. REVIEW OF SYSTEMS: He is very hard of hearing. No chest pain at this time. No shortness of breath. Does complain of some left neck pain, some discomfort with the catheter. PHYSICAL EXAMINATION: HEENT: Head is normocephalic. Sclerae nonicteric. Incision on left neck looks good. Ice pack is in place. HEART: Irregular regular with good breath sounds bilaterally. ABDOMEN: Soft. Santiago catheter in place. EXTREMITIES: Lower extremities reveal no edema. IMPRESSION: 1. Carotid artery stenosis status post left CEA. 2. Atrial fibrillation. 3. Diabetes. 4. History of recent retinal detachment. 5. Hypertension. PLAN: Admit to CV ICU. Postop surgical care as per Dr. Blackwell. We will monitor blood sugars. See orders for rest of plan. CONSULT REPORT [id number] SHEILA DENNEY TRANSINT:[id number] Voice Confirmation ID: [id number] DOCUMENT ID: [id number] TIFFANY DIAZ DO at 1645 CC: [id number] DICTATION DATE: 04/11/18 1222 SUBSURFACE AUGMENTEE OPERATOR: 04/11/18 1425 ADM IN [facility] [address] [id number]
[2018-04-11] MEDS ORDERED: FLUTICASONE PRO16 GM NASAL (16:55)
--- NOTE | 2018-04-11 19:50 | NUR ---
1910 REPORT RECIEVED. 1930 SHIFT ASSESSMENT COMPLETE, PLEASE SEE FLOW SHEETS FOR DETAILS. PATIENT AWAKE AND ALERT, ORIENTED X4. DENIES PAIN/NEEDS ATT. CHECK FOR TRACHEAL DEVIATION DONE AND NONE SEEN, TONGUE MIDLINE. INCISION SITE TO LEFT NECK WITH DRESSING CDI AND SOFT TISSUE SURROUNDING. DRESSING TO LEFT CHEST CDI, J-WILKINS IN PLACE AND BULB COMPRESSED, SMALL AMOUNT OF BLOODY DRAINAGE NOTED. RIGHT SUBCLAVIAN CVL WITH FLUIDS INFUSING - PLASMALYTE @ 30 ML/HR AND ZINOCEF @ 11.4 ML/HR, TOLERATING WELL. S1S2 AUSCULTATED AND CONTROLLED A-FIB NOTED ON CM RATE OF 76 AND IRREGULAR. PPP, CAP REFUL <3 SECONDS, RIGHT A-LINE WITH DRESSING INTACT BUT BLEEDING - EXTRA DRESSING IN PLACE, RIGHT BRACHIAL PULSE PALPABLE. GOOD SENSATION AND CAP REFIL TO RIGHT FINGERS. LUNGS CLEAR, DENIES SOB, HAS HOME BIPAP ON - 2L O2 ATTACHED TO DEVICE, TOLERATING WELL. BS ACTIVE X4. URINAL WITHIN REACH. MOVES ALL EXTREMETIES. DENIES ANY NEEDS ATT. HEMODYNAMICALLY ATABLE, BED LOW AND LOCKED, CALL LIGHT IN REACH. WILL CPOC.
--- NOTE | 2018-04-11 22:10 | NUR ---
2044 TOLERATED PO MEDS WELL. HAS OWN EYE DROPS AND FLONASE IN ROOM, PER AM NURSE FROM REPORT AND PER PATIENT HE ALREADY HAD HIS EVENING DOSE SO THESE WERE NOT ADMINISTERED AGAIN AND PHARMACY HAS NOT BROUGHT UP ANY MORE. INSPECTED CVL AND A-LINE SITES. CVL DRESSING NOT INTACT, THIS WAS CHANGED USING STERILE TECHNIQUE. INFORMED CHARGE NURSE OF DRESSING TO A-LINE CONTINUING TO LEAK BLOODY DRAINAGE, CHARGE NURSE INSPECTED A-LINE, GOOD WAVE FORM PRESENT AND FLUSHED WELL. WAS INSTRUCTED BY CHARGE NURSE TO CHANGE FLUIDS IN PRESSURE BAG FROM HEPARIN TO NS. OBTAINED NS, FLUSHED LINE BEFORE CLOSING OFF PATIENT SIDE, CHANGED OUT HEPARIN FOR NS, REPRESSURIZED, FLUSHED OUT HEPARIN INTO 4X4'S, ZERO'D LINE AND NO READING WOULD COME UP. THIS NURSE FLUSHED LINE SEVERAL TIMES, FLUSHED WELL. CHARGE NURSE IN ROOM TO ASSESS. TRIED TO ZERO LINE AGAIN, WOULD NOT GIVE PROPER READING, NO WAVE FORM PRESENT, CHARGE NURSE FLUSHED SEVERAL TIMES, CHECKED FOR BACKFLOW, NONE SEEN. 2129 DR BLACKWELL CONTACTED AND INFORMED OF PATIENT STATUS. ORDERS TO DC A-LINE GIVEN. 2139 - A-LINE DC'D PRESSURE HELD FOR 6 MINUTES, NO BLEEDING SEEN. PRESSURE DRESSING APPLIED TO SITE. PATIENT TOLERATED WELL. GOOD CAP REFIL TO FINGERS, DENIES TINGLING/NUMBNESS IN FINGERS. HEMODYNAMICALLY STABLE THROUGHOUT ENCOUNTERS. BED LOW AND LOCKED, CALL LIGHT IN REACH. WILL CPOC.
--- NOTE | 2018-04-11 22:41 | NUR ---
REASSESSMENT COMPLETE, PLEASE SEE FLOW SHEETS FOR DETAILS. DRESSING TO RIGHT RADIUS CDI. J-WILKINS DRAIN WITH SOME BLOODY DRAINAGE NOTED, COMPRESSED, DRESSING CDI. HEMODYNAMICALLY STABLE. DENIES PAIN/NEEDS. BED LOW AND LOCKED, CALL LIGHT IN REACH. WILL CPOC.
[2018-04-12] VITALS (24 sets, daily range): BP systolic 91–128; BP diastolic 53–85
--- NOTE | 2018-04-12 00:07 | NUR ---
WOKE EASILY. DENIES PAIN. NO TRACHEAL DEVIATION OBSERVED. HEMODYNAMICALLY STABLE. WILL CPOC.
--- NOTE | 2018-04-12 00:56 | NUR ---
RESTING, WOKE EASILY. DENIES PAIN/NEEDS. NO TRACHEAL DEVIATION TO NOTE. HEMODYNAMICALLY STABLE, WILL CPOC.
--- NOTE | 2018-04-12 02:44 | NUR ---
REASSESSMENT COMPLETE, PLEASE SEE FLOW SHEETS FOR DETAILS. NO ACUTE CHANGES FROM PREVIOUS ASSESSMENT TO NOTE. DENIES PAIN/NEEDS ATT. HEMODYNAMICALLY STABLE. BED LOW AND LOCKED, CALL LIGHT IN REACH. WILL CPOC.
--- NOTE | 2018-04-12 03:45 | NUR ---
OFFERED LINEN CHANGE AND WIPE DOWN, THIS WAS ACCEPTED. MOVES SELF. PUT ON OWN HOUSE PANTS. FRESH LINENS AND GOWN PROVIDED. PARTIAL BATH PROVIDED. PROVIDED COFFEE PER REQUEST AND TV GUIDE. PERSONAL ITEMS WITHIN REACH. NO TRACHEAL DEVIATION TO NOTE. HEMODYNAMICALLY STABLE ATT. CALL LIGHT IN REACH. BED LOW AND LOCKED. WILL CPOC.
--- NOTE | 2018-04-12 09:37 | NUR ---
PT CURRENTLY CALM-L NECK SOFT TO TOUCH-NO HEMATOMA-
--- NOTE | 2018-04-12 10:39 | NUR ---
FAMILY AT BEDSIDE-PT SITTING UP IN CHAIR WITH ASSISTANCE OF FAMILY-DR BLACKWELL PRESENT-R CVL SALINE LOCKED
--- NOTE | 2018-04-12 12:11 | OP ---
PATIENT NAME: SHEILA GROSSMAN MEDICAL RECORD: [id number] :35 [facility]ATION[facility] ADMISSION DATE:04/11/18 SURGEON: JERE BLACKWELL MD DATE OF OPERATION: 04/11/2018 SURGEON: Jere Blackwell MD ANESTHESIA: General endotracheal, Dr. Mccormick. OPERATION PERFORMED: Left carotid endarterectomy with patch angioplasty. PREOPERATIVE DIAGNOSIS: Severe left internal carotid artery stenosis. POSTOPERATIVE DIAGNOSIS: Severe left internal carotid artery stenosis. INDICATION FOR OPERATION: Severe left internal carotid artery stenosis. FINDINGS AT OPERATION: Severe left internal carotid artery stenosis. There were no EEG changes with clamping or unclamping of the carotid artery. ESTIMATED BLOOD LOSS: Less than 100 mL. DESCRIPTION OF PROCEDURE: After informed consent, adequate preoperative medication evaluation, the patient was brought to the operating room, placed on the table in the supine position. After induction of general endotracheal anesthesia and application of appropriate monitoring devices, left neck and chest were prepped and draped in sterile field, utilizing Betadine scrub, alcohol, and Betadine solution. Betadine-impregnated drape was also used. An oblique incision was made in the skin crease. Dissection carried down the fascia. Hemostasis maintained with electrocautery. Facial vein was identified and divided. Utilizing sharp dissection, the common carotid, internal and external carotid arteries were dissected free from surrounding structures, protecting the neurological structures. The patient was given a calculated dose of heparin. After 3 minutes, clamps were applied. After 2 minutes, no EEG change. The arteriotomy was made and extended with Bailon scissors. Artery underwent endarterectomy sharply. Artery underwent extensive debridement and irrigation. Utilizing a vascular patch, a running 6-0 Prolene suture, the arteriotomy was closed with patch angioplasty technique. All maneuvers to remove trapped air were performed. The clamps were removed sequentially. There were no EEG changes. The patient was given a calculated dose of protamine to reverse the heparin. Hemostasis was achieved. A #7 Christopher-Jenkins drain was left in the depths of wound and brought out through the base of the neck. Neck was again irrigated. Instrument count and sponge count were correct times 2. Neck was closed in layers utilizing 3-0 Vicryl on the platysma, 5-0 subcuticular Monocryl on the skin. Sterile dressings were applied. The patient tolerated the procedure well and transferred to cardiovascular recovery ICU in satisfactory condition. TRANSINT:[id number] Voice Confirmation ID: [id number] DOCUMENT ID: [id number] OPERATIVE REPORT [id number] SHEILA GROSSMAN EDWARD MD at 1211 CC: [id number] DICTATION DATE: 04/11/18 1148 WATER RESOURCES PROJECT MANAGER: 04/11/18 1343 ADM IN [id number] [place] [address]
--- NOTE | 2018-04-12 13:24 | NUR ---
1039-S/O AT [facility]-FAMILY AT BEDSIDE-BEDREST 1130-FOUND PT UP IN CHAIR-ALL BEDRAILS UP-FAMILY STATED HELPED HIM GET OUT OF BED -PT STATED COULD NOT BREATH IN BED-PT HOME CPAP-EASILY AVAILABLE-IV LINES REMAIN TANGLED IN BEDRAIL-DR BLACKWELL AT [facility]-ORDERED IV FLUIDS D/C'D-ACTIVITY AD AMBIKA-R CVL SALINE LOCKED-CPAP REMAINS AVAILABLE-O2 SAT 100%-O[address]-REMOVED AND PLACED PT ON ROOM AIR-PT ABLE TO STATE CURRENT [id number] FORGOT ABOUT THAT WHEN POINTED OUT IV
--- NOTE | 2018-04-12 17:59 | NUR ---
1445-NOTED SR ON MONITOR-NIBP DEC TO /48-PT AMBULATING IN RM-DIRECTED TO SIT IN RECLINER-RECHECKED NIBP 107/48 1600-NOTED HEMATOMA AROUND INCISION-SOFT TO TOUCH-NO TRACHEAL DEVIATION-PT STATES HURTS TO SWALLOW-ULTRAM PO GIVEN FOR SAME-NO CHANGE IN SPEECH 1730-NO CHANGES -SR -CONVERSES EASILY-L NECK SOFT TO TOUCH-NO TRACHEAL DEVIATION-ABLE TO SWALLOW EASILY
--- NOTE | 2018-04-12 23:05 | NUR ---
1900 REPORT RECIEVED. 1999 SHIFT ASSESSMENT COMPLETE, PLEASE SEE FLOW SHEETS FOR DETAILS. PATIENT BRUSHED HIS OWN TEETH. USED RESTROOM. BACK TO BED. LUNGS CLEAR. DRESSING CDI TO RIGHT SC CVL AND TO LEFT OLD DRAIN SITE. INCISION TO LEFT NECK OPEN TO AIR. EDEMA NOTED, SOME BRUISING MIDLINE NECK TO RIGHT SIDE WITH EDEMA BENEITH. NO TRACHEAL DEVIATION FOUND. PATIENT STATED UNCOMFORTABLE, ASKED FOR PAIN MEDS, WILL PROVIDED WITH PM MED PASS. DENIES ANY OTHER NEEDS. HEMODYNAMICALLY STABLE, BED LOW AND LOCKED, CALL LIGHT IN REACH. APPLIED ICE TO NECK TO RELIEVE SOME OF THE EDEMA. WILL CPOC. 2144 CHECKED IN ON PATIENT, HEMODYNAMICALLY STABLE, DENIES NEEDS. REMOVED ICE. 2299 REASSESSMENT COMPLETE, PLEASE SEE FLOW SHEETS FOR DETAILS. DENIES PAIN/NEEDS. HEMODYNAMICALLY STABLE. NO ACUTE CHANGES FROM PREVIOUS ASSESSMENT WILL CPOC.
[2018-04-13] VITALS (11 sets, daily range): BP systolic 105–134; BP diastolic 48–71
--- NOTE | 2018-04-13 01:00 | NUR ---
RESTING. HEMODYNAMICALLY STABLE ON HOME CPAP. BED LOW AND LOCKED, CALL LIGHT IN REACH. WILL CPOC.
--- NOTE | 2018-04-13 01:30 | NUR ---
PATIENT HAD C/O HEAD ACHE 09/24 ASKED FOR PAIN MEDS, THESE WERE PROVIDED PER ORDERS. DENIES ANY OTHER NEEDS. WILL CPOC.
--- NOTE | 2018-04-13 03:00 | NUR ---
REASSESSMENT COMPLETE, PLEASE SEE FLOW SHEETS FOR DETAILS. NO ACUTE CHANGES FROM PREVIOUS ASSESSMENT TO NOTE. DENIES PAIN/NEEDS ATT. ICE OFF ATT. TURNS SELF. HEMODYNAMICALLY STABLE. BED LOW AND LOCKED, CALL LIGHT IN REACH. WILL CPOC.
--- NOTE | 2018-04-13 06:23 | NUR ---
0500 UP TO CHAIR, PROVIDED MORNING PAPER AND FRESH COFFEE, DENIES ANY OTHER PAIN/NEEDS ATT. HEMODYNAMICALLY STABLE. CALL LIGHT IN REACH. WILL CPOC.
[2018-04-13 06:48] LABS: BASOPHILS 0.2 % (0-2); EOSINOPHILS 0.8 % (0-7); HEMATOCRIT 33.9 % (42.0-54.0); LYMPHOCYTES 14.3 % (15-50); MCH 31.1 pg (26.0-34.0); MCHC 32.4 g/dL (31.0-37.0); MCV 95.8 fL (80.0-100.0); MEAN PLATELET VOLUME 11.5 fL (7.4-10.4); MONOCYTES 9.7 % (2-11); PLATELET COUNT 109 10x3/uL (130-400); RBC 3.54 10x6/uL (4.20-6.10); RDW 14.3 % (11.5-14.5); WBC 4.8 10x3/uL (4.8-10.8)
[2018-04-13 07:03] LABS: CALC OSMOLALITY 281 mosm/kg (275-300); CARBON DIOXIDE 26.6 mmol/L (21.0-32.0); CHLORIDE - SERUM 104 mmol/L (98-107); GLUCOSE 121 mg/dL (74-106); POTASSIUM - SERUM 3.7 mmol/L (3.5-5.1); SODIUM 140 mmol/L (136-145); UREA NITROGEN 19 mg/dL (7-18); eGFR NON AFRICAN AMERICAN 76 mL/min (90-120)
--- NOTE | 2018-04-13 10:01 | NUR ---
0715-RECIEVED AWAKE AND ALERT -AMBULATING EASILY IN RM -USED OWN EYE GTTS-INFORMED AT THIS TIME 0850-SELF CARE IN RESTROOM
--- NOTE | 2018-04-13 14:14 | NUR ---
1230-DR BLACKWELL AT [facility]-REVIEWED WITH PT HOME CARE/APPT/ AND INCISION CARE/PAIN MANAGEMENT-R CVL REMOVED PER PROTOCOL-2 SUTURES-TOLERATED WELL DISCHARGED WITH SO.
== END 2018-04-13 14:17 | disposition home or self-care (01) | DRG 39 ==
LOC: D.CVICU 05:14 → D.SDCHOLD 05:14 → D.CVICU 11:51
PROVIDERS: Family Medicine; ADMIT Internal Medicine Cardiovascular Disease
PROC: 03UL0JZ Supplement Left Internal Carotid Artery with Synthetic Substitute, Open Approach (ICD-10-PCS; 2018-04-11)
PROC: 03CL0ZZ Extirpation of Matter from Left Internal Carotid Artery, Open Approach (ICD-10-PCS; principal; 2018-04-11 07:30)
DX: I65.22 Occlusion and stenosis of left carotid artery (principal); E11.9 Type 2 diabetes mellitus without complications; I10 Essential (primary) hypertension; J44.9 Chronic obstructive pulmonary disease, unspecified; I25.10 Atherosclerotic heart disease of native coronary artery without angina pectoris; I48.2 Chronic atrial fibrillation

== ENCOUNTER → 2018-10-17 10:26 | Outpatient (CLI) | payer MEDICARE, BC ==
[2018-04-11 13:12] VITALS: BMI 32.9
[~2018-10-17 10:26] MED LIST changes: +FLUTICASONE PRO16 GM NASAL; +VENTOLIN HFA18 GM INH
== END | disposition home or self-care (01) ==
LOC: D.US 10:26
PROVIDERS: ATTEND Internal Medicine Cardiovascular Disease
DX: I71.4 Abdominal aortic aneurysm, without rupture (principal); I65.23 Occlusion and stenosis of bilateral carotid arteries

== ENCOUNTER 2018-11-12 11:00 | Outpatient (CLI) | payer MEDICARE, BC ==
[~2018-11-12] VITALS: Ht 179.1 cm; Wt 102.3 kg
--- NOTE | ~2018-11-12 | HEMODYNAMI ---
PATIENT:SHEILA GROSSMAN MEDICAL RECORD: [id number] : 35 LOCATION:[facility] ADMISSION DATE: 11/12/18 Generatedon:11/12/201812:58 Patient name: SHEILA GROSSMAN Patient #: [id number] SSN: : 1935 Date of study: 11/12/2018 Page: Of Hemodynamic Procedure Report Patient Data Patient Demographics Procedure consent was obtained First Name: SHEILA Gender: Male Last Name: CHAUNCEY : 1935 Middle Initial: HIPOLITO Age: 83 year(s) Patient #: [id number] Race: Unknown Additional ID: [id number] Contact details Address: [address] [place] [address] State: [place] City: [place] Zip code: [address] Past Medical History Allergies: No known allergies Admission Admission Data Admission Date: 11/12/2018 Admission Time: 11:00 Height (in.): 70 BSA: 2.24 (m2) Height (cm.): 177.8 BMI: 33.72 (kg/m2) Weight (lbs.): 235 Weight (kg.): 106.59 Lab Results Lab Result Date: 11/12/2018 Lab Result Time: 0:00 Biochemistry Name Units Result Min Max BUN mg/dl 19 --(----)*- 7 18 Creatinine mg/dl 1.2 --(---*)-- 0.6 1.3 CBC Name Units Result Min Max Hematocrit % 39.3 -*(----)-- 42 54 Hemoglobin g/dl 13.4 -*(----)-- 13.5 17.5 Procedure Procedure Types Cath Procedure Diagnostic Procedure Cardioversion External Procedure Description Procedure Date Procedure Date: 11/12/2018 Procedure Start Time: 12:47 Procedure End Time: 12:58 Procedure Staff Name Function Christofer Johnson MD Performing Physician Quoc Mccormick MD Additional personnel Chico Carroll RN Nurse Yony Ahuja RT Monitor Viki Naidu RT Monitor Procedure Data Cath Procedure Fluoroscopy Diagnostic fluoroscopy Total fluoroscopy Time: 0 time: 0 min min Diagnostic fluoroscopy Total fluoroscopy dose: 0 dose: 0 mGy mGy Estimated blood loss: 0 ml Procedure Complications No complications Procedure Medications Medication Administration Route Dosage 0.9% NaCl I.V. 100 ml/hr Oxygen etCO2 Nasal cannula 5 l/min Refer to Anesthesia Notes for Sedation Medications Hemodynamics Rest BSA: 2.24 (m2) O2 Consumption: Estimated: 260.48 (ml/min) O2 Consumption indexed : Estimated:116.29 (ml/min/m) Heart Rate: 77 (bpm) Snapshots Pre Cath Intra NCS Post Cath Vital Signs Time Heart Resp SPO2 etCO2 NIBP (mmHg) Rhythm Pain Sedation Rate (ipm) (%) (mmHg) Status Level (bpm) 12:48:22 78 18 99 30 153/103(130) NSR 0 (11) 10(A) , No pain 12:52:38 55 11 91 0 119/75(104) NSR 0 (11) 8(A) , No pain 12:56:46 51 11 93 16.5 114/62(95) NSR 0 (11) 8(A) , No pain Medications Time Medication Route Dose Verified Delivered Reason Notes Effective ness by by 12:47:53 0.9% NaCl I.V. 100 [place] Per ml/hr Glen Carroll physician RN RN 12:48:21 Oxygen etCO2 5 [place] for low Nasal l/min Lorigan Lorigan 02 sats cannula RN RN 12:48:28 Refer to [place] for Anesthesia Lornikolas Carroll sedation Notes for RN RN Sedation Medications Procedure Log Time Note 12:30:15 Yony HAN(R) sent for patient. Start room use. 12:34:08 Procedure Status Elective Heart Cath (OP). 12:34:09 Time tracking: Regular hours (M-F 7:00 - 5:00) 12:34:13 Plan of Care:Hemodynamics will remain stable., Cardiac rhythm will remain stable., Comfort level will be maintained., Respiratory function will remain adequate., Patient/ family verbilizes understanding of procedure., Procedure tolerated without complication., Recovers from procedure without complications.. 12:35:09 Patient allergic to No known allergies 12:35:23 Patient Weight : 235 lbs 12:38:58 Patient arrived from Pre/Post Procedure Room to [facility] 3. Patient remains on bed/stretcher for procedure. 12:39:00 Signed procedure consent form obtained from patient. 12:39:01 Warm blankets applied, and caro hugger turned on for patient comfort. 12:39:01 Correct patient and procedure confirmed by team. 12:39:02 ECG and BP/O2 sat monitors applied to patient. 12:39:40 Patient Height : 70 inches 12:40:11 H&P Date Dictated: 11/06/2018 Within 30 days and on chart., H&P Addendum completed by physician on day of procedure. (MUST COMPLETE FOR ALL OUTPATIENTS). 12:40:12 Pre-procedure instructions explained to patient. 12:40:13 Pre-op teaching completed and patient verbalized understanding. 12:40:14 Family in patients room. 12:40:15 Patient NPO since Midnight. 12:40:17 Is patient on blood thinner?Yes 12:40:20 ACC The patient was administered the following blood thiners within the last 24 hours: Xarelto 12:40:26 Patient diabetic? Yes. 12:40:27 If diabetic: On Metformin? Yes 12:40:33 If on Metformin: Last Dose? 11/11/2018 12:40:34 Quoc Mccormick MD present and monitoring patient for TIVA. 12:40:37 Previous problem with sedation/anesthesia? No ? 12:40:38 Snore? Yes 12:40:38 Sleep apnea? Yes 12:40:41 Deviated septum? No 12:40:42 Opens mouth fully? Yes 12:40:48 Sticks out tongue? Yes 12:40:50 Airway obstruction? No ? 12:40:54 Rhythm: atrial fibrillation 12:40:59 Dentures? Yes in 12:41:07 Patient pain scale 0/10 ?. 12:41:17 IV patent on arrival in left hand with 0.9% NaCl at [facility]. 12:41:48 Lab Result : BUN 19 mg/dl 12:41:48 Lab Result : Creatinine 1.2 mg/dl 12:41:48 Lab Result : Hemoglobin 13.4 g/dl 12:41:48 Lab Result : Hematocrit 39.3 % 12:41:57 Lab results completed and on chart. 12:41:58 Alarms reviewed by R. N. 12:41:58 Sharps counted by scrub and verified by R.N. 12:42:07 Quick Combo opened to sterile field. 12:45:59 Vital chart was started 12:47:11 --------ALL STOP TIME OUT------ 12:47:12 Final Timeout: patient, procedure, and site verified with staff and physician. All members of the team are in agreement. 12:47:15 Fire Safety Assessment: A--An alcohol-based skin anteseptic being used preoperatively., C--Open oxygen or nitrous oxide is being used., D--An ESU, laser, or fiber-optic light is being used. 12:47:19 Physical assessment completed. ASA score P 3 - A patient with severe systemic disease as per Christofer Johnson MD. 12:47:22 Sedation plan: TIVA Medication:Propofol 12:47:26 ------Cardioversion------ 12:47:28 Procedure started. 12:47:28 Full Disclosure recording started 12:47:43 Quick combo pads placed on patients chest and back. 12:47:53 0.9% NaCl 100 ml/hr I.V. was administered by Chico Carroll RN; Per physician; 12:48:21 Oxygen 5 l/min etCO2 Nasal cannula was administered by Chico Carroll RN; for low 02 sats; 12:48:28 Refer to Anesthesia Notes for Sedation Medications was administered by Chico Carroll RN; for sedation; 12:49:17 Baseline sample Acquired. 12:50:25 Defibrillator synced and charged to 200 Joules. 12:50:30 Shock delivered. 12:51:15 Patient cardioverted to sinus bradycardia. 12:51:20 Procedure ended.(Physican Out) 12:52:52 Fluoroscopy time 00.00 minutes. 12:52:54 Fluoroscopy dose: 0 mGy 12::54 Flurop Dose total: 0 12::59 Post-procedure physical assessment completed. ASA score P 3 - A patient with severe systemic disease as per Christofer Johnson MD. 12:53:02 Post procedure rhythm: sinus bradycardia 12:53:04 Estimated blood loss: 0 ml 12:53:05 Post procedure instruction explained to patient.Patient verbalizes understanding. 12:53:05 Patient needs reinforcement of post procedure teaching. 12:54:01 Procedure and supply charges have been captured, reviewed, submitted and are correct. 12:54:33 Procedure Complication : No complications 12:58:04 Vital chart was stopped 12:58:04 See physician's report for complete and final results. 12:58:07 Report given to Pre/Post Procedure Room. 12:58:09 Patient transfered to Pre/Post Procedure Room with Bed. 12:58:11 Procedure ended. 12:58:11 Full Disclosure recording stopped 12:58:14 End room use (Document Last) Device Usage Item Manufacture Quantity Catalog Hospital Part Current Minimal Lot# / Name Number Charge Number Adriana Maciel al# Code [employer] 1 [id number] Combo Signature Audit Preston Stage Time Signature Unsigned Intra-Procedure 11/12/2018 Viki Naidu 12:58:29 PM RT(R) Signatures Performing Physician : Signature : Christofer Johnson MD Date : Time : Nurse : Chcio Carroll Signature : RN Date : Time : Monitor : Yony Ahuja RT Signature : Date : Time : Monitor : Viki Naidu Signature : RT Date : Time : [facility] [address] [place] [address]
[2018-11-12] MEDS ORDERED: XARELTO10 MG PO (11:15)
[2018-11-12 11:22] VITALS: BP 125/88; Ht 179.1 cm; Wt 102.3 kg
[2018-11-12 11:48] LABS: BASOPHILS 0.2 % (0-2); EOSINOPHILS 4.7 % (0-7); HEMATOCRIT 39.3 % (42.0-54.0); HEMOGLOBIN 13.4 g/dL (13.5-17.5); IMMATURE GRANULOCYTES 0.2 % (0-5); LYMPHOCYTES 24.8 % (15-50); MCH 30.6 pg (26.0-34.0); MCHC 34.1 g/dL (31.0-37.0); MCV 89.7 fL (80.0-100.0); MEAN PLATELET VOLUME 10.8 fL (7.4-10.4); MONOCYTES 8.7 % (2-11); NEUTROPHILS 61.4 % (40-80); PLATELET COUNT 124 10x3/uL (130-400); RBC 4.38 10x6/uL (4.20-6.10); WBC 4.5 10x3/uL (4.8-10.8)
[2018-11-12 11:57] LABS: ANION GAP 12.5 mmol/L (8-16); CARBON DIOXIDE 28.2 mmol/L (21.0-32.0); CREATININE - SERUM 1.2 mg/dL (0.6-1.3); POTASSIUM - SERUM 3.7 mmol/L (3.5-5.1)
[2018-11-12 11:58] LABS: INR 2.51 (0.85-1.17); PROTIME 26.4 SECONDS (11.6-15.0)
--- NOTE | 2018-11-12 13:09 | NUR ---
PT RECEIVED VIA STRETCHER FROM DIRECTOR OF DIGITAL MARKETING POST SUCCESSFUL CARDIOVERSION. PT AWAKE, DENIES PAIN OR DISCOMFORT. HR SINUS AUREA AT 56, BP 129/75, O2 SAT 98 ON 2L/NC. IV INFUSING VIA ORDERS PER L ARM. DAUGHTER AT BEDSIDE. UPPER CHEST W SLIGHT RED AREA, DENIES PAIN. COFFEE GIVEN PER REQUEST. CALL LIGHT IN REACH
--- NOTE | 2018-11-12 13:30 | NUR ---
PT SITTING UP IN BED VISITING W DAUGHTER. HR REMAINS SINUS AUREA, RATE 57, BP 142/81, 02 SAT 98. PT DENIES PAIN OR DISCOMFORT. SANDWICH OFFERED, REFUSED AT THIS TIME STATES" I WILL EAT WHEN I GET HOME". TOLERATING COFFEE W/O NAUSEA. CALL LIGHT IN REACH
--- NOTE | 2018-11-12 13:50 | NUR ---
DISCHARGE INSTRUCTIONS REVIEWED W PT AND DAUGHTER, BOTH VERBALIZED UNDERSTANDING. IV REMOVED W CATH INTACT. MONITORS AND O2 REMOVED AND PT UP TO DRESS FOR DISCHARGE.
--- NOTE | 2018-11-12 14:10 | NUR ---
1400 PT TO BR VIA WC, VOIDING W/O DIFFICULITY. PT THEN DISCHARGED TO PRIVATE VEHICLE TO DAUGHTER WAITING W ALL BELONGINGS.
--- NOTE | 2018-11-13 08:42 | OP ---
PATIENT NAME: SHEILA GROSSMAN MEDICAL RECORD: [id number] :35 LOCATION:D.CAT ADMISSION DATE: SURGEON: OLEKSANDR URIAS MD DATE OF OPERATION: 11/12/2018 PROCEDURE: Cardioversion. DESCRIPTION OF PROCEDURE: After general sedation via TIVA via anesthesia, a single synchronized shock was successful in restoring atrial fibrillation to normal sinus rhythm. IMPRESSION: Successful cardioversion. ESTIMATED BLOOD LOSS: Minimal. DISPOSITION: To the floor, stable. COMPLICATIONS: None. TRANSINT:[id number] Voice Confirmation ID: [id number] DOCUMENT ID: [id number] OLEKSANDR URIAS MD at 0842 CC: [id number] DICTATION DATE: 11/12/18 1256 SKIDDER RUNNER: 11/12/18 1314 DEP CLI 11/12/18 [place] [address] [place] [address]
== END 2018-11-12 14:00 | disposition home or self-care (01) ==
LOC: D.CATH 11:00
PROVIDERS: ATTEND Internal Medicine Interventional Cardiology
DX: I48.91 Unspecified atrial fibrillation (principal); Z01.812 Encounter for preprocedural laboratory examination

== ENCOUNTER → 2018-11-18 14:08 | Outpatient (CLI) | payer MEDICARE, BC ==
[2018-11-12 11:22] VITALS: BMI 31.9
[~2018-11-18 14:08] MED LIST changes: +XARELTO10 MG PO
--- NOTE | 2018-11-20 15:51 | EC ---
PATIENT:SHEILA GROSSMAN DATE OF SERVICE: 11/18/18 SEX: M MEDICAL RECORD: [id number] DATE OF : 35 LOCATION:D.[facility] AGE OF PATIENT: 83 ADMISSION DATE: 11/18/18 REFERRING PHYSICIAN: INTERPRETING PHYSICIAN: OLEKSANDR URIAS MD ECHOCARDIOGRAM REPORT ECHO CHARGES 4 ECHO COMPLETE Date: 11/18/18 CLINICAL DIAGNOSIS: A-FIB/DYSPNEA H/O CAD/HTN ECHOCARDIOGRAPHIC MEASUREMENTS (adult normal given) AC root (d.<3.7cm) 2.8 cm LV Septum d (<1.2 cm> 1.2 cm Valve Excursion 1.5 cm LV Septum (systole) 1.5 cm Left Atria (s.<4.0cm> 5.5 cm LVPW d(<1.2cm) 1.4 cm RV (d.<2.3cm) 2.8 cm LVPW (sytole) 1.7 cm LV diastole(<5.6CM) 6.2 cm MV E-F(>70mm/sec) cm LV systole 4.5 cm LVOT Diameter 1.9 cm MV exc.(>10mm) cm Est.ejection fraction (50-75%) % DOPPLER: LVIT cm/sec A 110 cm/sec E 86.0 cm/sec LA cm/sec RVSP 41.2 mmHg LVOT 82.0 cm/sec AOP1/2T m/s Asc. Ao 163 cm/sec RVOT 614.0cm/sec RA cm/sec PA 96.0 cm/sec AV Gradient Peak 11.0 mmHg AV Mean 5.3 mmHg AV Area 1.5 cm MV Gradient Peak 8.3 mmHg MV Mean 2.9 mmHg MV Area cm COMMENTS: OP - HC Animal Care Provider: 1 MARY LOU HEFLIN Staff Trainer: 3 Dr. Figueroa TAPE# PACS Pericardial Effusion N DATE OF SERVICE: Adequate 2-D echo, Color-Flow and Spectral Doppler, and M-mode LVH is present. LV internal dimensions are normal. Wall motion is normal. EF is greater than or equal to 55%. Aortic valve with sclerosis without stenosis by Doppler interrogation. Left atrium is dilated at 5.5 cm. Mitral valve is thickened. Mild MR. Right-sided chambers are grossly normal. Fwya-vs-luuluspl TR. ECHOCARDIOGRAM REPORT [id number] SHEILA GROSSMAN TRANSINT:[id number] Voice Confirmation ID: [id number] DOCUMENT ID: [id number] OLEKSANDR URIAS MD at 1551 CC: [id number] DICTATION DATE: 11/19/18 1328 SURVEILLANCE MONITOR: 11/19/181924 DEP CLI 11/18/18 [place] [address] [place] [id number]
== END | disposition home or self-care (01) ==
LOC: D.HCCARDIO 14:08
PROVIDERS: ATTEND Internal Medicine Interventional Cardiology
DX: I25.10 Atherosclerotic heart disease of native coronary artery without angina pectoris (principal)

== ENCOUNTER → 2019-02-17 09:20 | Outpatient (CLI) | payer MEDICARE, BC ==
[2018-11-12 11:22] VITALS: BMI 31.9
--- NOTE | ~2019-02-17 | ST ---
PATIENT:SHEILA GROSSMAN MEDICAL RECORD: [id number] SEX: M LOCATION:[facility] ORDER #: ADMISSION DATE: 02/17/19 AGE OF PATIENT: 83 REFERRING PHYSICIAN: INTERPRETING PHYSICIAN: JE DIAZ MD DATE OF SERVICE: 02/17/2019 INDICATIONS: Angina, coronary artery disease, atrial fibrillation, hypertension, abnormal ECG, shortness of breath. He was exercised on standard Lexiscan protocol with 31 mCi of sestamibi injected at peak stress, 10 mCi used previously for rest images. FINDINGS: Gated SPECT reveals preserved ejection fraction at 56%; however, there is decreased thickening and brightening throughout the inferior segments. SPECT Imaging: Cardiolite was used as myocardial perfusion agent. There is a fixed perfusion defect inferiorly. No evidence of reversible ischemia and the remaining segments are with homogeneous uptake at rest and stress. OVERALL IMPRESSION: Mildly abnormal but stable nuclear stress test showing only a fixed perfusion defect inferiorly. No evidence of reversible ischemia. Ejection fraction preserved at 56%. Continue medical management of the coronary artery disease and cardiac risk factors. TRANSINT:[id number] Voice Confirmation ID: [id number] DOCUMENT ID: [id number] JE DIAZ MD CC: [id number] DICTATION DATE: 02/18/19 1112 KNUCKLE BENDER: 02/19/19 0622 DEP CLI 02/17/19 [place] [id number] [place] [address]
== END | disposition home or self-care (01) ==
LOC: D.HCCARDIO 09:20
PROVIDERS: ATTEND Internal Medicine Interventional Cardiology
DX: I48.91 Unspecified atrial fibrillation (principal)

== ENCOUNTER 2019-07-31 20:33 | Inpatient (IN) | payer MEDICARE, BC ==
[~2019-07-31] VITALS: Ht 179.1 cm; Wt 104.5 kg
--- NOTE | ~2019-07-31 | HEMODYNAMI ---
PATIENT:SHEILA GROSSMAN MEDICAL RECORD: [id number] : 35 LOCATION:[facility] D.211 ADMISSION DATE: 08/01/19 Generatedon:08/03/201911:01 Patient name: SHEILA GROSSMAN Patient #: [id number] SSN: [id number] : 1935 Date of study: 08/03/2019 Page: Of Hemodynamic Procedure Report Patient Data Patient Demographics Procedure consent was obtained First Name: SEHILA Gender: Male Last Name: CHAUNCEY : 1935 [facility] Initial: HIPOLITO Age: 84 year(s) Patient #: [id number] Race: SSN: [id number] Additional ID: [id number] Contact details Address: [address] [place] [address] State: [place] City: [place] Zip code: [address] Past Medical History Allergies: No known allergies Admission Admission Data Admission Date: 08/01/2019 Admission Time: 12:42 Admit Source: Other Room #: D.2115 Lab Results Lab Result Date: 08/03/2019 Lab Result Time: 0:00 Biochemistry Name Units Result Min Max BUN mg/dl 22 --(----)-* 7 18 Creatinine mg/dl 1 --(--*-)-- 0.6 1.3 eGFR ml/min 76.13456 *-(----)-- 90 120 NONAFRICAN CBC Name Units Result Min Max Hematocrit % 40.7 -*(----)-- 42 54 Hemoglobin g/dl 13.2 -*(----)-- 13.5 17.5 Procedure Procedure Types Cath Procedure Diagnostic Procedure Cardioversion External XAVIER Procedure Description Procedure Date Procedure Date: 08/03/2019 Procedure Start Time: 0:00 Procedure Staff Name Function Christofer Johnson MD Performing Physician Gayle Martins RT Monitor Yulissa Felton RT Monitor Noe Ruvalcaba RN Nurse Silvina Sanchez Nurse Transplant Antione Pagan MD Additional personnel Procedure Data Procedure Complications No complications Procedure Medications Medication Administration Route Dosage Oxygen etCO2 Nasal cannula 2 l/min Hurricaine Phelps P.O. 1 Sprays Refer to Anesthesia Notes for Sedation Medications Hemodynamics Rest HGB: 13.2 (g/dl) Heart Rate: 82 (bpm) Snapshots Pre Cath Intra NCS Post Cath Vital Signs Time Heart Resp SPO2 etCO2 NIBP Rhythm Pain Sedation Rate (ipm) (%) (mmHg) (mmHg) Status Level (bpm) 10:39:45 74 13 99 26.9 121/73(98) A-Fib 0 (11) 10(A) , No pain 10:43:55 76 12 95 0 113/72(84) A-Fib 0 (11) 10(A) , No pain 10:47:59 88 12 96 25.4 102/68(77) A-Fib 0 (11) 9(A) , No pain 10:52:05 85 14 98 29.8 94/62(78) A-Fib 0 (11) 9(A) , No pain 10:57:59 19.4 Out of A-Fib 0 (11) 10(A) range , No pain Medications Time Medication Route Dose Verified Delivered Reason Notes Effectiv eness by by 10:39:57 Oxygen etCO2 2 Christofer Liu used for Nasal l/min St Sheila Ruvalcaba RN procedure cannula 10:45:14 Hurricaine P[address]O. 1 Christofer Liu Per Phelps Sprays St Sheila Ruvalcaba RN physician 10:45:18 Refer to Christofer Liu Anesthesia St Sheila Ruvalcaba RN Notes for MD Sedation Medications Procedure Log Time Note 10:14:49 Informed consent obtained and on chart 10:16:25 Lab Result : eGFR NONAFRICAN 76.70456 ml/min 10:16:25 Lab Result : Creatinine 1 mg/dl 10:16:25 Lab Result : BUN 22 mg/dl 10:16:25 Lab Result : Hematocrit 40.7 % 10:16:25 Lab Result : Hemoglobin 13.2 g/dl 10:16:37 Diagnostic Cath Status : Urgent 10:17:33 Admit Source: Other 10:17:38 Procedure Status XAVIER. 10:17:42 Noe Ruvalcaba RN sent for patient. Start room use. 10:18:23 H&P Date Dictated: 08/01/2019 Within 30 days and on chart.. 10:18:23 Pre-procedure instructions explained to patient. 10:18:24 Pre-op teaching completed and patient verbalized understanding. 10:18:26 Family unavailable. 10:18:28 Patient NPO since Midnight. 10:18:35 Patient allergic to No known allergies 10:18:44 Lab results completed and on chart. 10:18:46 Stress Test: no; N/A ? 10:18:48 Alarms reviewed by R. N. 10:18:49 Sharps counted by scrub and verified by R.N. 10:31:10 Time tracking: Regular hours (M-F 7:00 - 5:00) 10:31:14 Plan of Care:Hemodynamics will remain stable., Cardiac rhythm will remain stable., Comfort level will be maintained., Respiratory function will remain adequate., Patient/ family verbilizes understanding of procedure., Procedure tolerated without complication., Recovers from procedure without complications.. 10:31:21 Patient received from Med II to CCL 2 Alert and oriented. Tansferred to table in Supine position. 10:31:22 Warm blankets applied, and caro hugger turned on for patient comfort. 10:31:23 Correct patient and procedure confirmed by team. 10:31:23 ECG and BP/O2 sat monitors applied to patient. 10:31:28 Is the patient allergic to Iodine/contrast media? No. 10:31:29 Was the patient premedicated? N/A 10:31:32 Is patient on blood thinner?No 10:31:37 Patient diabetic? Yes. 10:36:21 ----Pre-sedation anethsthesia assessment.---- 10:36:24 Previous problem with sedation/anesthesia? No ? 10:36:25 Snore? Yes 10:36:47 IV patent on arrival in left forearm with 0.9% NaCl at O. 10:36:52 Patient pain scale 0/10 ?. 10:37:00 Sleep apnea? No 10:37:02 Deviated septum? No 10:37:03 Opens mouth fully? Yes 10:37:04 Sticks out tongue? Yes 10:37:11 Airway obstruction? Yes childhood asthma still has some 10:37:14 Dentures? No ? 10:37:47 Procedure type changed to Cath procedure, Diagnostic procedure, Cardioversion External, XAVIER 10:38:11 Antione Pagan MD present and monitoring patient for TIVA. 10:38:46 Vital chart was started 10:38:47 Baseline sample Acquired. 10:38:56 Rhythm: atrial fibrillation 10:38:57 Full Disclosure recording started 10:39:44 --------ALL STOP TIME OUT------ 10:39:47 Final Timeout: patient, procedure, and site verified with staff and physician. All members of the team are in agreement. 10:39:50 Fire Safety Assessment: A--An alcohol-based skin anteseptic being used preoperatively., C--Open oxygen or nitrous oxide is being used., D--An ESU, laser, or fiber-optic light is being used. 10:39:53 Physical assessment completed. ASA score P 2 - A patient with mild systemic disease as per Christofer Johnson MD. 10:39:56 Sedation plan: General Anesthesia Medication:Propofol 10:39:57 Oxygen 2 l/min etCO2 Nasal cannula was administered by Noe Ruvalcaba RN; used for procedure; Verbal order read back and verified. 10:40:00 Quick Combo opened to sterile field. 10:40:00 Silvina Laura Solderer Dipper present for XAVIER. 10:40:01 family contacted and notified of start of procedure.. 10:40:03 XAVIER 10:43:44 XAVIER started. 10:45:14 Hurricaine Phelps 1 Sprays P.O. was administered by Noe Ruvalcaba RN; Per physician; Verbal order read back and verified. 10:45:18 Refer to Anesthesia Notes for Sedation Medications was administered by Noe Ruvalcaba RN; ; Verbal order read back and verified. 10:49:21 XAVIER completed. 10:49:24 ------Cardioversion------ 10:49:26 Quick combo pads placed on patients chest and back. 10:50:01 Defibrillator synced and charged to 200 Joules. 10:50:06 Shock delivered. 10:50:59 Defibrillator synced and charged to 300 Joules. 10:51:07 Shock delivered. 10:52:20 Unsuccessful cardioversion. 10:52:35 Procedure ended.(Physican Out) 10:53:10 Post-procedure physical assessment completed. ASA score P 2 - A patient with mild systemic disease as per Christofer Johnson MD. 10:53:14 Post procedure rhythm: unchanged. 10:53:16 Post procedure instruction explained to patient.Patient verbalizes understanding. 10:53:17 Patient needs reinforcement of post procedure teaching. 10:55:04 Procedure and supply charges have been captured, reviewed, submitted and are correct. 10:55:09 Procedure Complication : No complications 10:55:11 Vital chart was stopped 10:55:19 XAVIER Findings: XAVIER w/ cardioversion: no left atrial clot noted (proceed with cardioversion) 10:55:38 Operative report dictated upon procedure completion. 10:55:39 See physician's report for complete and final results. 10:55:42 Report given to Med II. 10:55:53 Patient transfered to Med II with Bed. 10:57:31 End room use (Document Last) 10:57:51 End room use (Document Last) 10:58:07 End room use (Document Last) Device Usage Item Manufacture Quantity Catalog Hospital Part Current Minimal Lot# / Name Number Charge Number [facility] Code [employer] [facility] 1 [id number] Combo Signature Audit Tyrone Stage Time Signature Unsigned Intra-Procedure 08/03/2019 Yulissa Felton 10:57:51 AM RT(R) Intra-Procedure 08/03/2019 Noe Ruvalcaba RN 10:58:07 AM Intra-Procedure 08/03/2019 Christofer Jeronimo 11:01:44 AM Sheila GEE Signatures Performing Physician : Signature : Christofer Johnson MD Date : Time : Monitor : Gayle Signature : Lakshmi RT Date : Time : Monitor : Yulissa Felton Signature : RT Date : Time : Nurse : Noe Ruvalcaba RN Signature : Date : Time : [place] [address] [place] [address]
--- NOTE | ~2019-07-31 | OP ---
PATIENT NAME: SHEILA GROSSMAN MEDICAL RECORD: [id number] :35 LOCATION:D. D.2115 ADMISSION DATE:08/01/19 SURGEON: OLEKSANDR URIAS MD DATE OF OPERATION: 08/03/2019 PROCEDURE: Cardioversion. DESCRIPTION OF PROCEDURE: After general sedation via TIVA via anesthesia, both 200 and 300 joule shock synchronized were able to restore normal sinus rhythm from atrial fibrillation; however, after monitoring for several months, he reverted to atrial fibrillation on both occasions. IMPRESSION: Successful cardioversion, but inability to maintain sinus rhythm. During the procedure, the patient was monitored continuously with pulse oximetry and telemetry. TRANSINT:[id number] Voice Confirmation ID: [id number] DOCUMENT ID: [id number] OLEKSANDR URIAS MD CC: [id number] DICTATION DATE: 08/03/19 1124 POWER ELECTRONICS RESEARCH ENGINEER: 08/03/19 1645 DIS IN 08/03/19 [facility] [address] [place] [address]
--- NOTE | ~2019-07-31 | TEE ---
PATIENT:SHEILA GROSSMAN MEDICAL RECORD: [id number] LOCATION:D.M2 D.211 AGE OF PATIENT: 84 ADMISSION DATE: 08/01/19 SEX: M REFERRING PHYSICIAN: INTERPRETING PHYSICIAN: OLEKSANDR URIAS MD TRANSESOPHAGEAL ECHOCARDIOGRAM Date: 08/03/19 XAVIER CHARGE Y INDICATIONS: PRE CARDIOVERSION R/O LA APPENDAGE CLOT PREMEDICATIONS: PATIENT'S RESPONSE PROCEDURE DOPPLER MEASUREMENTS: LVIT LA PA 80 RA LVOT 79 RVOT 69 Asc. Ao 135 AV Gradient Peak 7.3 AV Mean 3.5 AV Area 1.5 MV Gradient Peak 5.1 MV Mean 2.9 MV Area INTERPRETATION: Doppler: 2-D: COLOR FLOW DOPPLER NORMAL SALINE STUDY: MISCELLANOUS: DIAGNOSIS: PLAN: Code Enforcement Officer:3 Dr. Figueroa Student: Elyse SANTOS COMMENTS: DATE OF SERVICE: 08/03/2019 PROCEDURE: Transesophageal Note DESCRIPTION OF PROCEDURE: After general sedation via TIVA via anesthesia, transesophageal Omniplane probe was placed in the distal esophagus and proximal stomach without difficulty. FINDINGS: Grossly LVH present. LV internal dimensions are normal. Wall motion TRANSESOPHAGEAL ECHOCARDIOGRAM REPORT [id number] SHEILA GROSSMAN is normal. EF is greater than or equal to 55%. Aortic valve is tricuspid. It is sclerotic, both good valve excursion. No significant AI. Left atrium appears normal. Left atrial appendage well visualized. No evidence of thrombus. Mitral valve is well visualized with no more than mild MR. Right-sided chambers appear grossly normal. [id number] TR with color flow imaging. At the end of procedure, the probe was turned posteriorly and this showed minimal atherosclerotic debris in the descending aorta. During the procedure, the patient was monitored continuously with pulse oximetry and telemetry and blood pressure monitoring. TRANSINT:[id number] Voice Confirmation ID: [id number] DOCUMENT ID: [id number] OLEKSANDR URIAS MD CC: [id number] DICTATION DATE: 08/03/19 1123 LINEMAN: 08/04/19 0254 DIS IN 08/03/19 [place] [id number] [place] [id number]
[2019-07-31] MEDS ORDERED: PLAVIX75 MG PO (20:56)
[2019-07-31] MEDS ORDERED: NAPROXEN250 MG PO (20:58)
[2019-07-31] MEDS ORDERED: XANAX0.5 MG PO (20:59)
[2019-07-31 21:00] LABS: BASOPHILS 0.2 % (0-2); EOSINOPHILS 0.3 % (0-7); HEMATOCRIT 41.9 % (42.0-54.0); HEMOGLOBIN 13.8 g/dL (13.5-17.5); IMMATURE GRANULOCYTES 0.2 % (0-5); LYMPHOCYTES 5.5 % (15-50); MCHC 32.9 g/dL (31.0-37.0); MCV 94.2 fL (80.0-100.0); MEAN PLATELET VOLUME 11.1 fL (7.4-10.4); MONOCYTES 6.5 % (2-11); NEUTROPHILS 87.3 % (40-80); PLATELET COUNT 137 10x3/uL (130-400); RBC 4.45 10x6/uL (4.20-6.10); RDW 14.3 % (11.5-14.5); WBC 6.2 10x3/uL (4.8-10.8)
[2019-07-31 21:14] LABS: APTT 30.9 SECONDS (22.8-39.4); CALC OSMOLALITY 278 mosm/kg (275-300); CALCIUM 8.7 mg/dL (8.5-10.1); CHLORIDE - SERUM 102 mmol/L (98-107); CREATININE - SERUM 1.4 mg/dL (0.6-1.3); GLUCOSE 118 mg/dL (74-106); INR 1.15 (0.85-1.17); PROTIME 14.6 SECONDS (11.6-15.0); SODIUM 136 mmol/L (136-145); UREA NITROGEN 28 mg/dL (7-18); eGFR NON AFRICAN AMERICAN 51 mL/min (90-120)
[2019-07-31 21:29] LABS: ALKALINE PHOSPHATASE 97 U/L (30-120); ALT (SGPT) 16 U/L (10-68); BILIRUBIN - TOTAL 0.64 mg/dL (0.2-1.3); CKMB 0.7 U/L (0.0-3.6); CREATINE KINASE 111 UL (21-232); PRO BNP 2045 pg/mL (0-450); PROTEIN - SERUM 7.4 g/dL (6.4-8.2); TROPONIN-I < 0.017 ng/mL (0.000-0.060)
--- NOTE | 2019-07-31 21:46 | NUR ---
PT GIVEN WARM BLANKETS AND URINAL, CALL LIGHT WITHIN REACH AND INSTRUCTED TO USE IF ANY FURTHER NEEDS OR NEEDS TO GET UP TO USE URINAL. INSTRUCTED NOT TO GET OUT OF BED WITHOUT CALLING FOR HELP FIRST. PT VERBALIZES UNDERSTANDING. WILL CONTINUE TO MONITOR.
--- NOTE | 2019-07-31 23:00 | NUR ---
ADMIT TO ROOM 2114 FROM ER. ALERT/ORIENTED. MET[place]KATLA WITH BILATERAL HEARING AIDES IN HIS POSSESSION. AMBULATORY WITH SBA, UP TO BATHROOM TO VOID. BACK TO BED. ADMISSION ASSESSMENT AND HISTORY COMPLETED. HOME MEDS REVIEWED/UPDATED. STARTED PT ON O2 @ 2L/NC SINCE HE IS SOB AND ALSO NORMALLY WEARS CPAP AT NIGHT. PLAN OF CARE REVIEWED. TELEMETRY INITIATED. SHOWING UCAF 110-130.
[2019-07-31 23:47] VITALS: BP 94/64; Ht 179.1 cm; Wt 104.5 kg
--- NOTE | 2019-08-01 01:09 | NUR ---
URINE SPECIMEN COLLECTED AND TAKEN TO LAB.
--- NOTE | 2019-08-01 02:41 | NUR ---
PT UP ON SIDE OF BED. VERY ANXIOUS. SOB, EVEN WITH O2 @ 2L/NC IN PLACE. STATES HE FEELS HE CANNOT BREATH. PT HAS AN ORDER FOR AN INHALER. BUILDING MAINTENANCE SUPERVISOR NOTIFIED AND SHE WILL ATTEMPT TO OBTAIN ONE FROM PHARMACY. OBTAINED BEDSIDE RECLINER FOR PT AND ALSO GAVE 0.5MG OF XANAX AT THIS TIME.
--- NOTE | 2019-08-01 03:00 | NUR ---
VENTOLIN HFA 2 PUFFS ADMINISTERED. PT UP IN BEDSIDE CHAIR. VERY ANXIOUS. STATES HE OFTEN FEELS THIS WAY AT HOME AND THEN HE WILL TAKE BIGGER DOSES OF XANAX IF HE DOES. UCAF/116 PER TELEMETRY AT THIS TIME.
[2019-08-01 03:18] LABS: BILIRUBIN NEGATIVE (NEGATIVE); GLUCOSE NEGATIVE (NEGATIVE); KETONE NEGATIVE (NEGATIVE); NITRITE NEGATIVE (NEGATIVE); UROBILINOGEN NORMAL (NORMAL)
[2019-08-01 04:30] VITALS: BP 87/56
[2019-08-01 04:56] LABS: BASOPHILS 0.1 % (0-2); EOSINOPHILS 0 % (0-7); HEMATOCRIT 40.3 % (42.0-54.0); IMMATURE GRANULOCYTES 0.3 % (0-5); LYMPHOCYTES 5.9 % (15-50); MCH 30.5 pg (26.0-34.0); MCHC 32.3 g/dL (31.0-37.0); MCV 94.6 fL (80.0-100.0); MEAN PLATELET VOLUME 10.3 fL (7.4-10.4); MONOCYTES 7.4 % (2-11); NEUTROPHILS 86.3 % (40-80); PLATELET COUNT 118 10x3/uL (130-400); RBC 4.26 10x6/uL (4.20-6.10); RDW 14.6 % (11.5-14.5); WBC 6.9 10x3/uL (4.8-10.8)
[2019-08-01 05:40] LABS: CALC OSMOLALITY 275 mosm/kg (275-300); CALCIUM 8.4 mg/dL (8.5-10.1); CARBON DIOXIDE 25.2 mmol/L (21.0-32.0); CHLORIDE - SERUM 100 mmol/L (98-107); CKMB 0.4 U/L (0.0-3.6); CREATINE KINASE 59 UL (21-232); CREATININE - SERUM 1.6 mg/dL (0.6-1.3); GLUCOSE 124 mg/dL (74-106); MAGNESIUM - SERUM 1.9 mg/dL (1.8-2.4); PHOSPHOROUS 3.4 mg/dL (2.5-4.9); SODIUM 135 mmol/L (136-145); UREA NITROGEN 26 mg/dL (7-18); eGFR NON AFRICAN AMERICAN 44 mL/min (90-120)
[2019-08-01 05:41] LABS: TROPONIN-I < 0.017 ng/mL (0.000-0.060)
--- NOTE | 2019-08-01 06:40 | NUR ---
PT UP/DOWN FROM BED TO RECLINER. XANAX MAKING HIM SLEEPY BUT HE REMAINS ANXIOUS AND NEEDING MUCH REASSURANCE. CPOC. REPORT TO ONCOMING NURSE.
--- NOTE | 2019-08-01 08:45 | NUR ---
AM MEDS GIVEN AT THIS TIME. PT UP TO SIDE OF BED, A/O X4, A LITTLE SOB ON 2L. INSTRUCTED PT TO TAKE SLOW DEEP BREATHS. AFTER A FEW MINUTES BREATHING STARTED TO GET A LITTLE BETTER. ALSO PROVIDED PT WITH A FRESH CUP OF COFFEE. PT DENIES ANY OTHER NEEDS AT THIS TIME. CALL LIGHT IN REACH, NAD NOTED, WILL CONTINUE TO MONITOR.
[2019-08-01] MEDS ORDERED: BETAPACE 120 M120 MG PO (08:48)
[2019-08-01] MEDS ORDERED: REVATIO20 MG PO (08:51)
[2019-08-01] MEDS ORDERED: IPRAT-ALBUT 0.5-3 ML UPD (08:57)
[2019-08-01] MEDS ORDERED: MUCINEX600 MG PO (08:57)
[2019-08-01 09:40] VITALS: BP 101/54
--- NOTE | 2019-08-01 11:24 | NUR ---
PT REQUESTING A BREATHING TREATMENT. CALLED [facility] AND SPOKE WITH FINN,INFORMED THAT PT IS REQUESTING A BREATHING TREATMENT.
[2019-08-01 13:12] VITALS: BP 110/59
[2019-08-01 17:23] LABS: CREATINE KINASE 147 UL (21-232)
[2019-08-01 17:31] LABS: TROPONIN-I < 0.017 ng/mL (0.000-0.060)
--- NOTE | 2019-08-01 19:30 | NUR ---
PT OUT TO NURSES STATION. COMPLETELY DRESSED AND CARRYING ALL HIS BELONGINGS. TELL NURSE HE IS GOING HOME. HE IS SOB AND VERY ANXIOUS. CALMED PATIENT DOWN AND WALKED HIM BACK TO HIS ROOM. SPOKE WITH DR RUSSO AND NEW ORDERS RECIEVED FOR SOB AND ANXIETY.
[2019-08-01 20:00] VITALS: BP 92/50
--- NOTE | 2019-08-01 20:15 | NUR ---
PT RECIEVED A DUONEB TREATMENT FOR HIS REPORTS OF SOB/DYSPNEA. NURSE TO ROOM TO GIVE HIM IV ATIVAN AND OTHER BEDTIME MEDS. NOTED THAT IV TO LFA IS NOT PATENT, THAT THE IV HAS BEEN PULLED OUT. RESITED 22G X 1 ATTEMPT TO LEFT FOREARM AND THEN ADMINISTERED IV ATIVAN AND OTHER ORAL BEDTIME MEDICATIONS. PT SITTING UP IN BEDSIDE CHAIR AND WISHES TO REMAIN THERE AT THIS TIME. CPOC.
--- NOTE | 2019-08-01 22:08 | NUR ---
PT CONTINUES TO REST IN BEDSIDE RECLINER. CAF/90 PER TELEMETRY. CPOC.
[2019-08-02] VITALS: BP 105/74
--- NOTE | 2019-08-02 00:56 | NUR ---
PT HAS BEEN ASLEEP IN HIS BEDSIDE RECLINER. LOUD NOISE HEARD IN ROOM AND STAFF ENTERED TO FIND PT SITTING IN FRONT OF SINK ON HIS REAR. ASSESSED PATIENT. NO INJURY NOTED. REDNESS TO LEFT ELBOW WHERE PT ALREADY HAS AN WARM/REDDENED ABRASION/SORE ON HIS LEFT ELBOW THAT PT STATES HE HAD FROM BEFORE HE CAME INTO THE HOSPITAL. STAFF X 2 ASSISTED PATIENT UP AND OVER TO HIS BED. MATT MAT PLACED ON BED AND PT ASSESSED AGAIN FROM HEAD TO TOE. PT ANSWERING QUESTIONS, DENIES NEED FOR ANY XRAYS AND DENIES ANY PAIN. PT HAD BEEN FULLY DRESSED RELATED TO THE BEGINNING OF THE SHIFT WHEN HE WAS DRESSED AND SAYING HE WAS GOING TO GO HOME NOW. AFTER RECEIVING A BREATHING TREATMENT AND IV ATIVAN, PT HAD SAT IN HIS RECLINER SLEEPING UNTIL THIS TIME.
--- NOTE | 2019-08-02 03:00 | NUR ---
PT SLEPT FOR A SHORT WHILE THEN AWAKENED AND WAS TRYING TO CLIMB OVER BEDRAILS. VERY ANXIOUS. WANTING TO GO HOME. MEDICATED WITH ATIVAN 0.5MG SIVP. MATT MAT NOW IN PLACE. SR UP X 3 AND CALL LIGHT IN REACH. DOOR TO ROOM OPEN FOR CLOSE SUPERVISION.
[2019-08-02 04:00] VITALS: BP 117/73
--- NOTE | 2019-08-02 05:00 | NUR ---
RESTING IN BED WITH NO DISTRESS. CPOC.
[2019-08-02 05:38] LABS: BASOPHILS 0.6 % (0-2); EOSINOPHILS 1.1 % (0-7); HEMATOCRIT 39.6 % (42.0-54.0); HEMOGLOBIN 12.6 g/dL (13.5-17.5); IMMATURE GRANULOCYTES 0.3 % (0-5); LYMPHOCYTES 14.8 % (15-50); MCH 30.1 pg (26.0-34.0); MCHC 31.8 g/dL (31.0-37.0); MCV 94.7 fL (80.0-100.0); MEAN PLATELET VOLUME 10.8 fL (7.4-10.4); MONOCYTES 9.2 % (2-11); PLATELET COUNT 105 10x3/uL (130-400); RBC 4.18 10x6/uL (4.20-6.10); RDW 14.7 % (11.5-14.5)
[2019-08-02 05:40] LABS: WBC 3.6 10x3/uL (4.8-10.8)
--- NOTE | 2019-08-02 06:18 | NUR ---
NOTIFIED NEXT OF KIN, ED ISLAS, DAUGHTER. OF PT'S FALL AT 0030 DURING THE NIGHT. SHE THANKED STAFF FOR THE CALL AND HAD NO FURTHER QUESTIONS.
[2019-08-02 06:46] LABS: ALBUMIN 3.5 g/dL (3.4-5.0); ALKALINE PHOSPHATASE 81 U/L (30-120); ALT (SGPT) 22 U/L (10-68); CALC OSMOLALITY 280 mosm/kg (275-300); CARBON DIOXIDE 25.5 mmol/L (21.0-32.0); CHLORIDE - SERUM 101 mmol/L (98-107); CKMB 1.2 U/L (0.0-3.6); CREATINE KINASE 127 UL (21-232); CREATININE - SERUM 1.1 mg/dL (0.6-1.3); GLUCOSE 114 mg/dL (74-106); PHOSPHOROUS 3.2 mg/dL (2.5-4.9); POTASSIUM - SERUM 3.2 mmol/L (3.5-5.1); PROTEIN - SERUM 6.1 g/dL (6.4-8.2); SODIUM 137 mmol/L (136-145); TROPONIN-I < 0.017 ng/mL (0.000-0.060); UREA NITROGEN 28 mg/dL (7-18); eGFR NON AFRICAN AMERICAN 68 mL/min (90-120)
[2019-08-02 08:45] VITALS: BP 124/62
--- NOTE | 2019-08-02 11:17 | NUR ---
BLOOD SUGAR OF 136, NO COVERAGE NEEDED PER S/S. PT STILL DROWSY BUT EASILY AROUSES TO VOICE AND FOLLOWS COMMANDS.
[2019-08-02 12:16] VITALS: BP 106/56
--- NOTE | 2019-08-02 13:11 | NUR ---
UPDATED PT'S STEPHENGARCIA ABOUT PT'S CONDITION AND PLAN OF CARE. PHONE NUMBER FOR CAT IS [phone].
[2019-08-02 14:00] VITALS: BP 131/76
[2019-08-02 20:00] VITALS: BP 86/51
--- NOTE | 2019-08-02 20:00 | NUR ---
INITIAL ROUNDS AND ASSESSMENT COMPLETED. PT RESTING IN BED WITH NO DISTRESS MATT ALARM ACTIVE. IVF NS @ KVO INFUSING TO RFA. CPOC.
[2019-08-03] VITALS: BP 89/57
[2019-08-03 04:00] VITALS: BP 115/72
--- NOTE | 2019-08-03 05:22 | NUR ---
INITIAL ROUNDS AND ASSESSMENT COMPLETED. PT RESTING IN BED WITH NO DISTRESS. MATT ALARM ACTIVE. IVF NS @ KVO INFUSING TO RFA. CPOC.
--- NOTE | 2019-08-03 05:25 | NUR ---
PT AWAKE AND VOIDING TO URINAL. SOME MILD CONFUSION AND FORGETFULNESS. HAS BEEN NPO SINCE MIDNIGHT FOR XAVIER AND CARDIOVERSION PER DR URIAS THIS AM. CPOC. CAF PER TELEMETRY. CPOC. REPORT TO ONCOMING NURSE.
[2019-08-03 05:37] LABS: ALBUMIN 3.3 g/dL (3.4-5.0); ALKALINE PHOSPHATASE 87 U/L (30-120); ALT (SGPT) 26 U/L (10-68); BILIRUBIN - TOTAL 0.71 mg/dL (0.2-1.3); CALC OSMOLALITY 274 mosm/kg (275-300); CALCIUM 8.3 mg/dL (8.5-10.1); CARBON DIOXIDE 26.2 mmol/L (21.0-32.0); CHLORIDE - SERUM 102 mmol/L (98-107); GLUCOSE 101 mg/dL (74-106); MAGNESIUM - SERUM 2.1 mg/dL (1.8-2.4); PHOSPHOROUS 3.1 mg/dL (2.5-4.9); POTASSIUM - SERUM 3.7 mmol/L (3.5-5.1); PROTEIN - SERUM 6.5 g/dL (6.4-8.2); SODIUM 136 mmol/L (136-145); UREA NITROGEN 22 mg/dL (7-18); eGFR NON AFRICAN AMERICAN 76 mL/min (90-120)
[2019-08-03 05:44] LABS: BASOPHILS 0.3 % (0-2); EOSINOPHILS 4.5 % (0-7); HEMATOCRIT 40.7 % (42.0-54.0); HEMOGLOBIN 13.2 g/dL (13.5-17.5); MCH 30.8 pg (26.0-34.0); MCHC 32.4 g/dL (31.0-37.0); MCV 94.9 fL (80.0-100.0); MEAN PLATELET VOLUME 10.9 fL (7.4-10.4); MONOCYTES 16.1 % (2-11); NEUTROPHILS 59.1 % (40-80); PLATELET COUNT 100 10x3/uL (130-400); RBC 4.29 10x6/uL (4.20-6.10); RDW 14.5 % (11.5-14.5); WBC 3.4 10x3/uL (4.8-10.8)
--- NOTE | 2019-08-03 07:59 | NUR ---
CONSENTS SIGNED BY PT AND PLACED ON CHART.
--- NOTE | 2019-08-03 08:58 | EC ---
PATIENT:SHEILA GROSSMAN DATE OF SERVICE: 08/01/19 SEX: M MEDICAL RECORD: [id number] DATE OF : 35 LOCATION:D.M2 D.211 AGE OF PATIENT: 84 ADMISSION DATE: 08/01/19 REFERRING PHYSICIAN: INTERPRETING PHYSICIAN: OLEKSANDR URIAS MD ECHOCARDIOGRAM REPORT ECHO CHARGES 4 ECHO COMPLETE Date: 08/01/19 CLINICAL DIAGNOSIS: AFIB ECHOCARDIOGRAPHIC MEASUREMENTS (adult normal given) AC root (d.<3.7cm) 2.8 cm LV Septum d (<1.2 cm> 0.7 cm Valve Excursion 1.7 cm LV Septum (systole) 1.1 cm Left Atria (s.<4.0cm> 3.3 cm LVPW d(<1.2cm) 1.2 cm RV (d.<2.3cm) 3.2 cm LVPW (sytole) 1.5 cm LV diastole(<5.6CM) 4.6 cm MV E-F(>70mm/sec) cm LV systole 3.4 cm LVOT Diameter 1.6 cm MV exc.(>10mm) cm Est.ejection fraction (50-75%) % DOPPLER: LVIT cm/sec A 108 cm/sec E 74 cm/sec LA cm/sec RVSP 29.2 mmHg LVOT 79 cm/sec AOP1/2T m/s Asc. Ao 135 cm/sec RVOT 69 cm/sec RA cm/sec PA 80 cm/sec AV Gradient Peak 7.3 mmHg AV Mean 3.5 mmHg AV Area 1.5 cm MV Gradient Peak 5.1 mmHg MV Mean 2.9 mmHg MV Area cm COMMENTS: Polymerization Oven Operator: Jessenia [facility] Project Manager: 3 Dr. Figueroa TAPE# PACS Pericardial Effusion N DATE OF SERVICE: Adequate 2D, color flow imaging, spectral Doppler, and M-Mode. No LVH. LV internal dimension is normal. Wall motion is normal. EF is greater than or equal to 55%. Aortic valve is sclerotic. There is no evidence of stenosis by Doppler interrogation. Left atrium is normal. Mitral valve shows no prolapse. Trace MR. Right-sided chambers are grossly normal. Trace TR. TRANSINT:[id number] Voice Confirmation ID: [id number] DOCUMENT ID: [id number] ECHOCARDIOGRAM REPORT [id number] SHEILA GROSSMAN OLEKSANDR URIAS MD at 0858 CC: [id number] DICTATION DATE: 08/02/19 1015 PUTTYING AND CALKING SUPERVISOR: 08/02/19 1355 ADM IN [place] [id number] [place] [id number]
--- NOTE | 2019-08-03 08:58 | CN ---
PATIENT NAME:SHEILA GROSSMAN MEDICAL RECORD: [id number] : 35 LOCATION:D. D.2115 ADMIT DATE: 08/01/19 ACCOUNT: [id number] CONSULTING PHYSICIAN: OLEKSANDR URIAS MD REFERRING PHYSICIAN: PATRICIA FOX DO DATE OF CONSULTATION: 08/01/2019 HISTORY OF PRESENT ILLNESS: An 84-year-old gentleman with a history of atrial fibrillation, had a history of TIA, on Plavix for TIA, not felt to be a good candidate for antiplatelet and NOAC in the same setting, admitted with dyspnea, shortness of breath, anxiety, found to be in AFib RVR, has been cardioverted in the past. We are asked to see him concerning his cardiovascular status. PAST MEDICAL HISTORY: Includes: 1. History of hypertension. 2. Hyperlipidemia. 3. Atrial fibrillation. 4. Diabetes mellitus. MEDICATIONS: Include metformin 500 mg p.o. b.i.d., Mucinex 600 b.i.d., Lasix 20 every day, Xanax 0.5 every 12 hours p.r.n., aspirin 81 every day, sotalol 120 b.i.d., Revatio 20 b.i.d., Hytrin 5 mg p.o. at bedtime, lisinopril 20/12.5 every day, simvastatin 40 every day, albuterol inhaler 2 puffs every 6 hours, DuoNeb 3 mL b.i.d. ALLERGIES: None known. SOCIAL HISTORY: Nonsmoker, nondrinker. Easily takes cares all his ADLs, does work outside and in fact has garden. REVIEW OF SYSTEMS: The patient reports easy bruising but reports no swollen glands. The patient reports no fever, no night sweats, no significant weight gain, no significant weight loss. No significant exercise tolerance. The patient reports no dry eyes, no irritation, no vision change. Patient reports no difficulty hearing and no ear pain. Patient reports no frequent nose bleeds or nose and sinus problems. Patient reports on arm pain on exertion. No shortness of breath while lying down. No history of heart murmur. Patient reports no cough, no wheezing or coughing up blood. Patient reports no abdominal pain, no vomiting. Normal appetite. No diarrhea and not vomiting blood. No nausea and no constipation. Patient reports no incontinence. No difficulty urinating. No hematuria. No increased frequency. Patient reports no muscle aches. No weakness, no arthralgias, no back pain. No swelling of the extremities. Patient reports no abnormal mole, no jaundice, no rashes. Reports no loss of consciousness. No weakness and no numbness. No seizures, dizziness, or headaches. The patient reports no depression, no sleep disturbance, feeling safe in a relationship and no alcohol abuse. Patient reports on fatigue. Reports no runny nose or sinus pressure. No itching, no hives, and no frequent sneezing. PHYSICAL EXAMINATION: GENERAL: Pleasant gentleman in no acute distress. VITAL SIGNS: Pulse rate is currently 110, blood pressure is 87/56. HEENT: Normocephalic, atraumatic. NECK: No bruits are noted. HEART: Irregular, tachycardic, II/ systolic ejection murmur. CONSULT REPORT [id number] SHEILA GROSSMAN LUNGS: Fairly good excursion with few expiratory wheezes. ABDOMEN: Soft, nontender. EXTREMITIES: Pulses 2+. There is no edema. NEUROLOGIC: Grossly intact. DIAGNOSTIC DATA: EKG shows atrial fibrillation and also ST-T changes. IMPRESSION: Atrial fibrillation. At this point in time, we will strive for rate control currently. Given somewhat marginal blood pressures, we will add digoxin load IV, potassium will replaced, increased BUN, at this point in time, may be a little bit intravascular volume deplete. Further recommendations based on the above. TRANSINT:[id number] Voice Confirmation ID: [id number] DOCUMENT ID: [id number] OLEKSANDR URIAS MD at 0858 CC: [id number] DICTATION DATE: 08/01/19906 FABRIC SEPARATOR OPERATOR: 08/01/19 1446 ADM IN [facility] [address] [place] [address]
--- NOTE | 2019-08-03 09:12 | NUR ---
AM MEDS GIVEN AT THIS TIME WITH A SIP OF WATER. ALSO GAVE PRE-OP MEDS. PT DENIES ANY NEEDS AT THIS TIME. CALL LIGHT IN REACH, MATT ALARM ON. BEDSIDE RAILS X2, NAD NOTED, WILL CONTINUE TO MONITOR.
[2019-08-03 09:16] VITALS: BP 119/72
--- NOTE | 2019-08-03 10:32 | NUR ---
PT TO TAXONOMY TEACHER.
--- NOTE | 2019-08-03 11:12 | NUR ---
RECEIVED PT BACK TO ROOM 2114. PT A/O X4, VITAL SIGNS STABLE. PLACED PT ON FREQUENT VITAL SIGNS. PT DENIES ANY NEEDS AT THIS TIME. CALL LIGHT IN REACH, MATT ALARM ON, NAD NOTED, WILL CONTINUE TO MONITOR.
--- NOTE | 2019-08-03 14:53 | NUR ---
PROVIDED VERBAL AND WRITTEN DISCHARGE TEACHING TO PT, WHO VERBALIZED UNDERSTANDING REGARDING TEACHING. D/C LT FA IV WITH CATHETER TIP INTACT. HEART MONITOR REMOVED AND TAKEN TO GOVERNMENT CLERK. PT LEFT UNIT VIA WHEELCHAIR, WITH ALL BELONGIGNS, NAD NOTED.
== END 2019-08-03 14:54 | disposition home or self-care (01) | DRG 309 ==
LOC: D.ER 20:33 → OBSVTIME 22:13 → D.M2 22:13
PROVIDERS: Family Medicine; ADMIT Family Medicine; ATTEND Family Medicine
DX: I48.91 Unspecified atrial fibrillation (principal); N17.9 Acute kidney failure, unspecified; E87.1 Hypo-osmolality and hyponatremia; L03.114 Cellulitis of left upper limb; I25.10 Atherosclerotic heart disease of native coronary artery without angina pectoris; I11.0 Hypertensive heart disease with heart failure; I50.9 Heart failure, unspecified; J44.9 Chronic obstructive pulmonary disease, unspecified; I71.4 Abdominal aortic aneurysm, without rupture; N40.0 Benign prostatic hyperplasia without lower urinary tract symptoms; E11.65 Type 2 diabetes mellitus with hyperglycemia; D64.9 Anemia, unspecified; D69.6 Thrombocytopenia, unspecified; E87.6 Hypokalemia; M71.522 Other bursitis, not elsewhere classified, left elbow; Z87.891 Personal history of nicotine dependence

== ENCOUNTER → 2019-10-19 08:04 | Outpatient (CLI) | payer MEDICARE, BC ==
[2019-07-31 23:47] VITALS: BMI 32.6
[~2019-10-19 08:04] MED LIST changes: +BETAPACE 120 M120 MG PO; +IPRAT-ALBUT 0.5-3 ML UPD; +MUCINEX600 MG PO; +NAPROXEN250 MG PO; +XANAX0.5 MG PO
== END | disposition home or self-care (01) ==
LOC: D.CT 08:04
PROVIDERS: ATTEND Internal Medicine Cardiovascular Disease
DX: I71.4 Abdominal aortic aneurysm, without rupture (principal); I65.21 Occlusion and stenosis of right carotid artery